=== PATIENT | male | born 1990 | race Caucasian/White ===

== ENCOUNTER 2018-01-29 15:32 | Emergency (ER) | payer OTHER, BC, SELFPAY ==
[2018-01-29 15:33] VITALS: BP 126/70; PULSE 76; RESP 16; TEMP 36.6; O2SAT 99; BMI 26.6
--- NOTE | 2018-01-29 15:38 | ED.RN ---
THIS RN TALKED TO RECORDINGS LIBRARIAN ORLIN WHITEHEAD. HE STATES NO DRUG TESTING IS REQUIRED.
--- NOTE | 2018-01-29 15:51 | ED.DCSUM_ITS ---
- ER Visit Summary Date of Service: 01/29/18 Chief Complaint: Right thumb laceration History of Present Illness: The patient is a 27 M presenting with right thumb laceration. This occurred at work just prior to arrival. He is left-handed and was using a hammer. He accidentally hit his right thumb and it got pinched. He has a laceration to the right thumb. Unknown last tetanus immunization. No other complaints. Physical Examination: Vitals are stable. Patient is afebrile. Alert no acute distress. HEENT exam is unremarkable. Lungs are clear and equal bilaterally. Heart is regular rate and rhythm. Extremities 1.5 cm laceration to the volar aspect of the right thumb, tendon function is intact, normal cap refill Skin is warm and dry. No focal neurologic deficit. Remainder of exam is unremarkable. Emergency Department Course and Treatment: Patient was given tetanus IM. X-ray of the right hand is obtained and shows no acute process, possible foreign body over the fifth metacarpal. There is no current injury to this area. Laceration was repaired under sterile conditions. Anesthetized with lidocaine. Irrigated with saline. 3, 5-0 simple sutures were placed. Patient tolerated this well. Advised follow-up with [facility], [facility]. Advised return to ED if worsening complaints. Disposition: Discharge home Impression: Right thumb laceration, laceration repair This note was generated with [employer] dictation software. It may contain incorrect words, spelling, and punctuation that were not noted in review of the chart prior to signing ED Disposition - Plan for ED Patient: Chief Complaint: Laceration Instructions: ED Laceration Hand Referrals: [facility] [GROUP OF PHYSICIANS] - Rui Ramos MD [Primary Care Provider] -
--- NOTE | 2018-01-29 16:05 | RAD_ITS ---
STUDY: X-RAY - RIGHT HAND REASON FOR EXAM: Male, 27 years old. Bleeding TECHNIQUE: 3 view(s) of the hand. COMPARISON: None. FINDINGS: Normal radiocarpal articulation. Normal distal radioulnar joint. Normal visualized carpal bones. Normal carpal articulations Normal carpometacarpal articulation of the thumb. Normal second through fifth carpometacarpal joints. Normal metacarpi. Normal metacarpophalangeal joint of the thumb. Normal interphalangeal joint of the thumb. Normal proximal and distal phalanges of the thumb. Normal metacarpophalangeal joints of the second through fifth fingers. Normal proximal and distal interphalangeal joints of the second through fifth fingers. Normal phalanges of the second through fifth fingers. There is a curved thin radio opacification projecting over the fifth metacarpal head suggesting possible foreign body RAD/Hand Min 3 Views IMPRESSION: Normal x-ray examination of the hand. Possible foreign body projecting over the fifth metacarpal head Electronically Signed: Radu Toro MD at 16:17 EDT , Service support ,
--- NOTE | 2018-01-29 17:16 | ED.DEP ---
ED Disposition - Plan for ED Patient: Chief Complaint: Laceration Instructions: ED Laceration Hand Referrals: Rui Ramos MD [Primary Care Provider] - [facility] [GROUP OF PHYSICIANS] -
[2018-01-29] MEDS: Diphth,Pertuss(Acell),Tet Vac 0.5 ML Vial IM (17:24)
== END 2018-01-29 17:47 | disposition home or self-care (01) ==
PROVIDERS: Emergency Provider Emergency Medicine; Family Provider Family Medicine; PCP Family Medicine
DX: S61.011A Laceration without foreign body of right thumb without damage to nail, initial encounter (principal); W22.8XXA Striking against or struck by other objects, initial encounter; Y93.9 Activity, unspecified; Y92.89 Other specified places as the place of occurrence of the external cause; Y99.0 Civilian activity done for income or pay; Z23 Encounter for immunization
CPT/HCPCS: 12001; 73130; 90715; 99284

== ENCOUNTER 2018-10-31 14:38 | Emergency (ER) | payer OTHER, BC, SELFPAY ==
[2018-10-31 14:39] VITALS: BP 136/81; PULSE 83; RESP 16; TEMP 36.8; O2SAT 97; BMI 29.0
--- NOTE | 2018-10-31 15:11 | ED.DCSUM_ITS ---
- ER Visit Summary Date of Service: 10/31/18 Chief Complaint: Finger laceration History of Present Illness: The patient is a 28 M who was at work when he got his left little finger pinched/cut. Last tetanus about 6 months ago. He is left-handed. Denies any other injuries. Bleeding controlled and sensation preserved. Physical Examination: Afebrile vital signs stable There is a 2 cm linear laceration over the volar aspect of the distal phalanx of the left little finger. It is gaping. There is no active bleeding. Tendon function normal. Neurovascular intact. Emergency Department Course and Treatment: Wound was locally anesthetized using 1% lidocaine. It was washed with Shur-Clens and explored. It was closed with a total of #3 simple interrupted 4-0 Ethilon sutures. Wound care discussed with patient. Stitches will need to be removed in 7 to 10 days. Impression: 1. Left little finger laceration-2 cm with repair This note was generated with [employer] dictation software. It may contain incorrect words, spelling, and punctuation that were not noted in review of the chart prior to signing ED Disposition - Plan for ED Patient: Disposition: Home or Assisted Living Instructions: ED Laceration Hand Referrals: [facility] [GROUP OF PHYSICIANS] - (in 7-10 days for suture removal)
[2018-10-31 15:29] VITALS: BP 124/77; PULSE 69; RESP 15; O2SAT 98
== END 2018-10-31 15:32 | disposition home or self-care (01) ==
LOC: ED 15:20
PROVIDERS: Emergency Provider Emergency Medicine; Family Provider Family Medicine; PCP Family Medicine
DX: S61.217A Laceration without foreign body of left little finger without damage to nail, initial encounter (principal); W23.0XXA Caught, crushed, jammed, or pinched between moving objects, initial encounter; Y93.9 Activity, unspecified; Y92.9 Unspecified place or not applicable; Y99.9 Unspecified external cause status; K21.9 Gastro-esophageal reflux disease without esophagitis; Z79.899 Other long term (current) drug therapy
CPT/HCPCS: 12001; 99284

== ENCOUNTER → 2019-07-23 07:01 | Outpatient (CLI) | payer BC, SELFPAY ==
[2018-11-08 17:12] VITALS: BMI 29.0
[2019-07-23 10:33] LABS: ALB/GLOB Ratio 1.3 RATIO (0.9-2.4); AST(SGOT) 18 U/L (15-37); Alanine Aminotransfer ALT/SGPT 30 U/L (16-61); Albumin, Serum 4.4 g/dL (3.2-5.0); Alkaline Phosphatase 57 U/L (45-117); Anion Gap 6 (5-15); BUN 16 mg/dL (7-18); BUN/Creat Ratio 15.4 RATIO (10-20); Calcium,Total 9.4 mg/dL (8.5-10.1); Chloride 105 mmol/L (98-107); Cholesterol 243 mg/dL (200); Creatinine, Serum 1.04 mg/dL (0.70-1.30); EST Glomerular Filtration Rate 89 mL/min (>60); Est Glom Filt Rate - Afr Amer 108 mL/min (>60); Globulin 3.5 g/dL (2.2-4.2); Glucose 95 mg/dL (74-106); High Density Lipoprotein 54 mg/dL; Protein, Total 7.9 g/dL (6.4-8.2); Sodium Level 137 mmol/L (136-145); Triglycerides 134 mg/dL; Very Low Density Lipoprotein 27 mg/dL (5-40)
== END ==
PROVIDERS: PCP Family Medicine; Referring Provider Nurse Practitioner Family; Visit Provider Nurse Practitioner Family
DX: E66.9 Obesity, unspecified (principal)
CPT/HCPCS: 36415; 80053; 80061

== ENCOUNTER → 2021-05-10 | Outpatient (CLI) | payer BC, SELFPAY | END | disposition home or self-care (01) | LOC: LABSPEC 05-13 09:25 | PROVIDERS: PCP Family Medicine; Visit Provider Family Medicine | DX: Z20.822 Contact with and (suspected) exposure to COVID-19 (principal) | CPT/HCPCS: 87635; U0005; U0003 ==

== ENCOUNTER → 2021-06-22 | Outpatient (CLI) | payer BC, SELFPAY | END | disposition home or self-care (01) | LOC: LABSPEC 15:20 | PROVIDERS: PCP Family Medicine; Referring Provider Family Medicine; Visit Provider Family Medicine | DX: Z20.822 Contact with and (suspected) exposure to COVID-19 (principal) | CPT/HCPCS: 87635; U0005; U0003 ==

== ENCOUNTER 2023-04-18 08:21 | Emergency (ER) | payer OTHER, SELFPAY ==
[2023-04-18 08:22] VITALS: BP 153/93; PULSE 90; RESP 16; TEMP 35.7; O2SAT 100; BMI 30.7
--- NOTE | 2023-04-18 08:48 | CT_ITS ---
INDICATION: Injury/Pain EXAMINATION: CT BRAIN - CT Head or Brain W/O Contrast Injection TECHNIQUE: Multiple axial images were obtained of the head without intravenous contrast. A radiation dose optimization technique was used for this scan. IV Contrast dosage and agent: None. RADIATION DOSAGE (If Supplied By Facility): CTDIvol = ( 44.99 ) mGy, DLP = ( 812.98 ) mGycm COMPARISON: No relevant prior comparison study available FINDINGS: BRAIN PARENCHYMA: No intra- or extra-axial hemorrhage. No evidence of acute infarct. No intracranial mass or mass effect. There is preservation of the euceda/white matter interface. Small right cerebellar calcification. CSF SPACES: Appropriate for age. No hydrocephalus. Basal cisterns are patent. CALVARIUM, SKULL BASE, PARANASAL SINUSES AND MASTOID AIR CELLS: Clear. No discrete lytic or blastic abnormalities. ORBITS: Both globes, extraocular muscles, optic nerves and retrobulbar fat appear unremarkable. CT/Brain/Head without Contrast IMPRESSION: No acute intracranial process. Electronically Signed: Zenon Bangura MD at 9:14 EDT ,
--- NOTE | 2023-04-18 08:48 | CT_ITS ---
INDICATION: Injury/Pain EXAMINATION: CT CERVICAL SPINE - CT Spine Cervical W/O Contrast Injection TECHNIQUE: Helically acquired images were obtained of the cervical spine. 2D reformatted images were reviewed. A radiation dose optimization technique was used for this scan. IV Contrast dosage and agent: None. RADIATION DOSAGE (If Supplied By Facility): CTDIvol = ( 25.57 ) mGy, DLP = ( 579.49 ) mGycm COMPARISON: No relevant prior comparison study available FINDINGS: VERTEBRAE: No fracture or traumatic subluxation. No discrete lytic or blastic abnormality. Normal alignment. Normal craniocervical junction and cervicothoracic junction. DISCS and SPINAL CANAL: Disc heights are preserved. No critical stenosis. NECK SOFT TISSUES: No prevertebral soft tissue swelling. There is no cervical adenopathy. LUNG APICES: Clear. CT/Spine Cervical without Contras IMPRESSION: No evidence of acute cervical spinal fracture or spondylolisthesis. Electronically Signed: Zenon Bangura MD at 9:18 EDT ,
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
== END 2023-04-18 09:50 | disposition home or self-care (01) ==
PROVIDERS: Emergency Provider Emergency Medicine; PCP Family Medicine; Visit Provider Emergency Medicine
DX: S06.0X0A Concussion without loss of consciousness, initial encounter (principal); V49.40XA Driver injured in collision with unspecified motor vehicles in traffic accident, initial encounter; S16.1XXA Strain of muscle, fascia and tendon at neck level, initial encounter; R07.89 Other chest pain; M25.512 Pain in left shoulder; Z79.899 Other long term (current) drug therapy; Z87.891 Personal history of nicotine dependence
CPT/HCPCS: 70450; 72125; 99282

== ENCOUNTER → 2023-12-15 | Outpatient (CLI) | payer OTHER, SELFPAY ==
[2023-12-16 01:39] LABS: Anion Gap 11 (5-15); BUN 13 mg/dL (7-18); BUN/Creat Ratio 14.2 RATIO (10-20); Calcium,Total 9.5 mg/dL (8.5-10.1); Chloride 104 mmol/L (98-107); Cholesterol 199 mg/dL (200); Creatinine, Serum 0.92 mg/dL (0.70-1.30); EST Glomerular Filtration Rate 100 mL/min (>60); Est Glom Filt Rate - Afr Amer 121 mL/min (>60); Glucose 87 mg/dL (74-106); High Density Lipoprotein 38 mg/dL; Potassium 4.3 mmol/L (3.5-5.1); Sodium Level 138 mmol/L (136-145); Triglycerides 159 mg/dL; Very Low Density Lipoprotein 32 mg/dL (5-40)
== END | disposition home or self-care (01) ==
LOC: MFPLAB 11:39
PROVIDERS: PCP Family Medicine; Visit Provider Family Medicine
DX: Z00.00 Encounter for general adult medical examination without abnormal findings (principal)
CPT/HCPCS: 36415; 80048; 80061

== ENCOUNTER → 2024-01-10 | Outpatient (CLI) | payer OTHER, SELFPAY ==
--- NOTE | 2024-01-10 15:08 | NEURO ---
NCS and/or EMG Patient Report Ordering Doctor: Jamil Gardner DATE OF SERVICE: 01/10/24 Yefri presents with numbness, tingling and pain in both hands, worse on the right side. Electrodiagnostic findings: Right median motor nerve demonstrates prolonged distal latency with normal amplitude and reduced conduction velocity. Left median motor nerve demonstrates prolonged distal latency with normal amplitude and conduction velocity. Ulnar motor response within normal limits bilaterally, including conduction across the elbow. Prolonged right median sensory latency at the wrist. Prolonged left median sensory latency at the wrist. Needle EMG testing was performed in the upper limbs. All muscles tested showed no evidence of denervation with normal motor unit action potentials Electrodiagnostic impression: This is an abnormal study in the upper limbs 1. Electrodiagnostic findings suggestive of bilateral median mononeuropathy. This is consistent with a moderate right carpal tunnel syndrome and a mild left carpal tunnel syndrome 2. No electrodiagnostic evidence is noted for cervical radiculopathy. Multi Select Codes Neurology Neurology Interp Codes: 57527-71 Musc test done w/n test comp (interp) (2) and 88605-28 Nrv cndj test 9-10 studies (interp)
== END | disposition home or self-care (01) ==
PROVIDERS: PCP Family Medicine; Referring Provider Family Medicine; Visit Provider Family Medicine
DX: R20.0 Anesthesia of skin (principal); R20.2 Paresthesia of skin
CPT/HCPCS: 95886; 95911

== ENCOUNTER → 2024-06-05 | Outpatient (CLI) | payer OTHER, SELFPAY ==
--- NOTE | 2024-06-05 16:28 | RAD_ITS ---
INDICATION: PHYSICIAN ORDER EXAMINATION/TECHNIQUE: X-RAY - XR Chest 2 Views COMPARISON: No relevant prior comparison study available FINDINGS: LINES/DEVICES: None. LUNGS: No consolidation, edema or effusion. No pneumothorax. MEDIASTINUM AND CARDIOVASCULAR STRUCTURES: Cardiac silhouette not enlarged. Central airways and mediastinal contour are unremarkable. BONES AND SOFT TISSUES: Unremarkable. RAD/Chest PA and Lateral IMPRESSION: No radiographic evidence of acute cardiopulmonary disease. Electronically Signed: Zenon Bangura MD at 17:59 EST ,
[2024-06-05 17:53] LABS: Absolute Neutrophil Count 3.8 X10^3/uL (2.0-7.7); Basophil# 0.06 X10^3/uL; Basophil% 0.7 % (0-1); Eosinophil# 0.59 X10^3/uL; Eosinophils% 6.5 % (0-5); Hematocrit 40.8 % (40-54); Lymphocyte % 39.4 % (19-41); Mean Corp Hgb Conc 34.3 g/dL (32-36); Mean Corpuscular Hgb 28.2 pg (27.0-32.0); Mean Corpuscular Volume 82.3 fL (80-94); Mean Platelet Vol. 8.3 fl (6.2-12.0); Monocyte# 1.04 X10^3/uL; Monocyte% 11.4 % (0-10); NRBC Flagged by Analyzer 0 % (0-5); Neutrophil # 3.81 X10^3/uL (2.7-7.7); Neutrophil % 41.7 % (47-70); Platelet Count 272 K/mm3 (150-450); RBC Distribution Width CV 12.3 % (11.6-14.6); RBC Distribution Width SD 37.1 fl (35.1-43.9); Red Blood Count 4.96 M/mm3 (4.6-6.2); White Blood Count 9.1 K/mm3 (4.4-11.0)
== END | disposition home or self-care (01) ==
PROVIDERS: PCP Family Medicine; Referring Provider Family Medicine; Visit Provider Family Medicine
DX: R06.02 Shortness of breath (principal)
CPT/HCPCS: 36415; 71046; 85025

== ENCOUNTER → 2025-01-16 | Outpatient (CLI) | payer OTHER, SELFPAY ==
--- OUTSIDE RECORDS SUMMARY | 2025-01-16 08:38 | XMS RPT_ITS | CCD ---
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 COMPLAINT: No chief complaint on file. HPI: This is a 34 year old male who presents with left hand with numbness and tingling. Attempted injections with temporary relief, but have become more ineffective. Dx with carpal tunnel. ACTIVE PROBLEM LIST Seasonal Allergies Gastroesophageal Reflux Disease Without Esophagitis PAST MEDICAL HISTORY Diagnosis Date Gastroesophageal reflux disease without esophagitis 12/04/2024 NEGATIVE MEDICAL HISTORY Seasonal allergies 12/04/2024 PAST SURGICAL HISTORY Procedure Laterality Date PAST SURGICAL HISTORY OF hernia repair, WRIST SURGERY HX FAMILY HISTORY Problem Relation Age of Onset Anesthesia Problems No Family History Social History Tobacco Use Smoking status: Never Smokeless tobacco: Never Vaping Use Vaping status: Never Used Substance Use Topics Alcohol use: Never Drug use: Never ALLERGIES Allergen Reactions Demerol [Meperidine] Hives MEDICATIONS: Current Outpatient Medications Medication Sig MULTIVITAMIN ORAL Take 1 tablet by mouth once daily. fexofenadine HCl (JASMYNE 60 MG CAP) Take 1 capsule by mouth once daily. No current facility-administered medications for this visit. REVIEW OF SYSTEMS: Pain Assessment: General: No weight loss, malaise or fevers. Neuro: No history of TIA's, stroke, AMMONIUM SULFATE OPERATOR tumor, impaired sensorium, hemiplegia, paraplegia or quadraplegia. No neurological symptoms or problems. Respiratory: No history of current cough or dyspnea, or pneumonia in the past 6 weeks. No history of respiratory/pulmonary symptoms or problems. Seasonal allergies. Cardiovascular: No history of HTN requiring medication, no history of angina, CHF, PA, cardiac surgery or stents. Denies rest pain, gangrene or revascularization/amputatio n for PVD. No history of cardiovascular symptoms or problems. GI: Positive for GERD : No history of dysuria, frequency or incontinence,, stones or chronic kidney disease Endocrine: No history of diabetes. Has not taken steroids within the past 30 days. No history of endocrinological symptoms or problems. Hematology: No history of bleeding or clotting disorder. Pt is not taking anti-coagulation or platelet medications. No history of hematological symptoms or problems. Oncology: No history of CA metastasis, chemo within 30 days, or radiotherapy within 90 days. Has not lost 10% of body wt in 6 months. No history of oncological symptoms or problems. Psych: No history of psychiatric symptoms or problems. Musculoskeletal: Negative for joint pain or swelling, back pain or muscle pain. Skin: Negative for lesions, rash and itching. Objective PHYSICAL EXAM: Ht 5' 4 (1.63m) Wt 165 lb (74.8kg) BMI 28.31 kg/(m2). VIDEO EXAM: (if completed, performed via video enabled technology) GENERAL: alert and appropriate, in no distress, well-hydrated, well nourished, and happy, smiling, interactive SKIN: no rash noted HEAD: normocephalic, no abnormality or lesion noted OROPHARYNX: moist mucus membranes NECK: no self-reported cervical adenopathy RESPIRATORY: breathing non-labored CHEST: equal chest rise with normal respiratory effort HEART: no JVD or c/o CP or heart palpitations. Diagnostic tests reviewed for today's visit: Lab Value Units Date High Low HB No results within date range. HCT No results within date range. WBC No results within date range. PLT No results within date range. NA No results within date range. K No results within date range. GLUC No results within date range. BUN No results within date range. CREAT No results within date range. PTSEC No results within date range. INR No results within date range. APTT No results within date range. ALT No results within date range. AST No results within date range. TBILI No results within date range. TSH No results within date range. Lab Value Units Date High Low HCGQT No results within date range. UHCG No results within date range. HCG, BODY* No results within date range. Lab Value Units Date High Low ABO (more content not included)... Normal [facility] [place] 11-18-2024 YASHN Telephone (SUSAN) YEFRI MEJIA ([id number]) 1990 M Date Time Provider Department 11/18/24 MADDIE HUANG During your visit today, we recorded the following information about you: Lara Garland, WOLF 11/18/2024 1:29 PM Signed Patient calling in regards to schedule CTR surgery Please call when able Trini Martinez 11/18/2024 2:50 PM Signed Spoke to the patient. Allergies As of Date: 11/18/2024 Noted Allergy Reaction DEMEROL (MEPERIDINE) 03/07/2024 4 - Hives Date Reviewed: 11/13/2024 Reviewed by: Emily Heath MA - Fully Assessed Reason for Visit: Schedule Surgery [1330] Prescriptions as of 11/18/2024 - MULTIVITAMIN ORAL Take 1 tablet by mouth once daily. - fexofenadine HCl (JASMYNE 60 MG CAP) Take 1 capsule by mouth once daily. Problem List As Of Date: 11/18/2024 (None) Encounter Status:Closed by ANA MARIA ALLENTRINI on 11/18/24 Normal [facility] Additional Injections: L car pal tunnelon 11-13-2024 Maddie Huang, DO 11/19/2024 7:41 AM Additional Injections: L carpal tunnel for carpal tunnel syndrome 11/13/2024 7:39 AM The procedure site was prepped in the usual sterile fashion. Medications: 10 mg triamcinolone acetonide 10 mg/mL Anesthetics: 1 mL BUPivacaine (PF) 0.5 % (5 mg/mL) Outcome: tolerated well, no immediate complications Post-injection instructions were reviewed with the patient and the patient voiced understanding of these instructions. Informed Consent Consent Obtained: Verbal Sterling Protocol A moment to CARE was completed. SIGN IN Personnel directly involved with the procedure wore the appropriate PPE. Special Equipment: N/A Patient/Surrogate Stated/Verified: Patient name, Date of , Relevant allergies and Intended procedure TIME OUT Relevant labs, photos, and/or imaging studies have been reviewed. Intended patient and procedure match source documents. Consent obtained and matches the intended procedure. Correct side/site marked and visible. Medications required for procedure verified. Fire risk assessed and interventions discussed. No implant(s) inserted. SIGN OUT All specimens correctly labeled and sent. All instruments, equipment, possible retained foreign bodies accounted for. The post-procedure POC has been communicated to the patient or surrogate. No post-procedure POC communication to the patient's multidisciplinary team (including the bedside nurse for hospitalized patients) applicable. [facility] CNOVon 11-13-2024 CNOV Office Visit (ORMDNA ) YEFRI MEJIA ([id number]) 1990 M Date Time Provider Department 11/13/24 3:45 PM MADDIE HUANG During your visit today, we recorded the following information about you: Maddie Huang DO 11/19/2024 7:41 AM Signed Follow Up Visit Chief Complaint Yefri is a 34-year-old male with a history of left carpal tunnel syndrome, presenting for a corticosteroid injection. Additional Injections: L carpal tunnel for carpal tunnel syndrome 11/13/2024 7:39 AM The procedure site was prepped in the usual sterile fashion. Medications: 10 mg triamcinolone acetonide 10 mg/mL Anesthetics: 1 mL BUPivacaine (PF) 0.5 % (5 mg/mL) Outcome: tolerated well, no immediate complications Post-injection instructions were reviewed with the patient and the patient voiced understanding of these instructions. Informed Consent Consent Obtained: Verbal Sterling Protocol A moment to CARE was completed. SIGN IN Personnel directly involved with the procedure wore the appropriate PPE. Special Equipment: N/A Patient/Surrogate Stated/Verified: Patient name, Date of , Relevant allergies and Intended procedure TIME OUT Relevant labs, photos, and/or imaging studies have been reviewed. Intended patient and procedure match source documents. Consent obtained and matches the intended procedure. Correct side/site marked and visible. Medications required for procedure verified. Fire risk assessed and interventions discussed. No implant(s) inserted. SIGN OUT All specimens correctly labeled and sent. All instruments, equipment, possible retained foreign bodies accounted for. The post-procedure POC has been communicated to the patient or surrogate. No post-procedure POC communication to the patient's multidisciplinary team (including the bedside nurse for hospitalized patients) applicable. Patient presents with: Left Hand - Established Patient, Follow Up, Injections History of Present Illness PAIN EVALUATION 11/13/2024 1948 Pain Level: 7 Pain Location: Hand-Left Description: Numbness;Tingling;Aching Duration Amount of Time: -- ongoing Frequency: Intermittent Intervention/Comfort measure: Medication CSI HPI: Yefri Mejia is a 34 year old male for a follow up visit for left hand for carpal tunnel injection. He states that the last injection helped and he would like to get a repeat injection would also like to discuss possible surgery as well. Pain history is noted as above. Is there any overall improvement in your condition? No Any new injury, since being seen last: No Left Carpal Tunnel Syndrome: - Received a corticosteroid injection today. - Previous injection in August provided relief, but not as effective as the first injection. - Considering carpal tunnel release surgery in March. 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 REVIEW OF SYMPTOMS: Patient did not have, and does not currently have, any weight loss, malaise, fever, chills, headache, chest pain, chest pressure, palpitations, cough, shortness of breath, orthopnea, paroxsymal nocturnal dyspnea, nausea, vomiting, diarrhea, constipation, melena, hematochezia, urinary difficulties, prolonged bleeding, easily bruising, heat or cold intolerance, new onset joint pain or swelling, new onset extremity weakness or numbness, new onset auditory or visual disturbances, lightheadedness, dizziness, partial loss of consciousness or full loss of consciousness. No current symptoms were explicitly reported in the transcript; therefore, no ROS findings are documented. Current Outpatient Medications Medication Sig MULTIVITAMIN ORAL Take 1 tablet by mouth once daily. fexofenadine HCl (JASMYNE 60 MG CAP) Take 1 capsule by mouth once daily. No current facility-administered medications for this visit. Physical Exam Vitals: There were no vitals taken for this visit. Psych: Pleasant, good affect and mood General Appearance: Well appearing, alert, in no acute distress, well-hydrated, well nourished.. Skin: Skin color, texture, turgor normal, no suspicious rashes or lesions. Peripheral Pulses: Normal. Neurologic: Gait normal. Reflexes normal and symmetric. Sensation grossly intact.. Lymph Nodes: No cervical lymphadenopathy, No supraclavicular lymphadenopathy, No axillary lymphadenopathy., and No inguinal lymphadenopathy.. Respiratory: No recent pulmonary infection, hemoptysis, chronic cough, or shortness of breath at rest Rheumatologic: Joint deformities: left hand pain Right Hand Exam Tenderness The patient is experiencing no tenderness. Range of Motion The patient has normal right wrist ROM. Wrist Extension: normal Flexion: normal Pronation: normal Supination: normal Muscle Strength The patient has normal right wrist strength. Tests Phalen?s Sign: (more content not included)... Normal [facility] Additional Injections: Romi ann tunnelon 08-07-2024 Maddie Huang, DO 08/11/2024 9:28 AM Additional Injections: L carpal tunnel for carpal tunnel syndrome 08/07/2024 9:25 AM Medications: 10 mg triamcinolone acetonide 10 mg/mL Anesthetics: 1 mL BUPivacaine (PF) 0.5 % (5 mg/mL) [facility] CNOVon 08-07-2024 CNOV Office Visit (ORMDNA ) RODOLFOYEFRI ALVARADO ([id number]) 1990 M Date Time Provider Department 08/07/24 10:30 AM MADDIE HUANG During your visit today, we recorded the following information about you: Maddie Huang DO 08/11/2024 9:28 AM Signed Follow Up Visit Additional Injections: L carpal tunnel for carpal tunnel syndrome 08/07/2024 9:25 AM Medications: 10 mg triamcinolone acetonide 10 mg/mL Anesthetics: 1 mL BUPivacaine (PF) 0.5 % (5 mg/mL) Chief Complaint Yefri Mejia is a 34 year old male who presents today for follow up office visit. Patient presents with: Left Hand - Follow Up, Pain, Injections History of Present Illness PAIN EVALUATION 08/01/2024 0709 08/06/2024 1822 Pain Level: 6 6 Description: Burning;Numbness Burning;Numbness Duration Units: Months Months Frequency: Continuous Continuous HPI: Yefri Mejia is a 34 year old male for a follow up visit left carpal tunnel injection. Patient got significant relief from last injection in March. He is interested in having carpal release but wants to wait a few months. Pain history is noted as above. Is there any overall improvement in your condition? Yes, with injection Any new injury, since being seen last: No REVIEW OF SYMPTOMS: Patient did not have, and does not currently have, any weight loss, malaise, fever, chills, headache, chest pain, chest pressure, palpitations, cough, shortness of breath, orthopnea, paroxsymal nocturnal dyspnea, nausea, vomiting, diarrhea, constipation, melena, hematochezia, urinary difficulties, prolonged bleeding, easily bruising, heat or cold intolerance, new onset joint pain or swelling, new onset extremity weakness or numbness, new onset auditory or visual disturbances, lightheadedness, dizziness, partial loss of consciousness or full loss of consciousness. Current Outpatient Medications Medication Sig MULTIVITAMIN ORAL Take 1 tablet by mouth once daily. fexofenadine HCl (JASMYNE 60 MG CAP) Take 1 capsule by mouth once daily. No current facility-administered medications for this visit. Physical Exam Vitals: There were no vitals taken for this visit. Psych: Pleasant, good affect and mood General Appearance: Well appearing, alert, in no acute distress, well-hydrated, well nourished.. Skin: Skin color, texture, turgor normal, no suspicious rashes or lesions. Peripheral Pulses: Normal. Neurologic: Gait normal. Reflexes normal and symmetric. Sensation grossly intact.. Lymph Nodes: No cervical lymphadenopathy, No supraclavicular lymphadenopathy, No axillary lymphadenopathy., and No inguinal lymphadenopathy.. Respiratory: No recent pulmonary infection, hemoptysis, chronic cough, or shortness of breath at rest Rheumatologic: Joint deformities: left carpal tunnel symptoms Ortho Exam Assessment and Plan Radiographs: No imaging to review. Impression: Encounter Diagnosis ICD-10-CM 1. Bilateral carpal tunnel syndrome G56.03 Today, in detail, through a thorough evaluation, we discussed possible etiologies of pain and our plans for further diagnostic and therapeutic interventions. We discussed strategies for decreasing pain and improving strength, stability and motion. Patient's questions were answered in detailed. Patient verbalizes understanding and agrees with the treatment plan as discussed. Discussed with patient possible options for treatment. Patient elected proceed with injection. Patient told not to submerge the injected area for 24 hours in a hot tub, or bath, injection may take 2 weeks for improvement to be noticed, follow-up in 2 -6 weeks if symptoms do not resolve. All questions answered patient agreement of plan. Apply ice Limit activities as discussed Rest Do not submerge limb in water for 24 hours Cont current meds Watch sugars/decrease carbs Call if warm/hot/red Discussed with patient that if the injection does not work after 2 to 4 weeks to come back for reevaluation. Discussed the next 3 days may feel worse before it feels better. Discussed if having continued pain to return. May get injection every 3 months Maddie Huang D.O. M.P.H. Referring Provider: MADDIE HUANG [[id number]] Allergies As of Date: 08/07/2024 Noted Allergy Reaction DEMEROL (MEPERIDINE) 03/07/2024 4 - Hives Date Reviewed: 08/07/2024 Reviewed by: Aarti Mello MA - Fully Assessed Reason for Visit: Follow Up [171] Pain [78] Injections [199] Primary Visit Diagnosis:Bilateral carpal tunnel syndrome [G56.03] Order(s):Additional Injections: L carpal tunnel [HWV917] Order #: [id number] [] BUPivacaine (PF) 0.5 % (5 mg/mL) 1 mL injectionDisp: Rfl: [] triamcinolone acetonide 10 mg injection (KeNALog 10)Disp: Rfl: Prescriptions as of 08/11/2024 - MULTIVITAMIN ORAL Take 1 tablet by mouth once daily. - fexofenad (more content not included)... Normal [facility] CBC W/Diff, Automatedon 12-0 Absolute Lymph 3.60 X10 3/uL Normal 0.83-4.51 [facility] Comment on above: Performed By: #### L 100.0100 #### [facility] [address] [place], [address] Absolute Neut 3.8 X10 3/uL Normal 2.0-7.7 [facility] Comment on above: Performed By: #### L 100.0100 #### [facility] [address] [place], [address] Basophils/100 WBC (Bld) 0.7 % Normal 0-1 [facility] Comment on above: Performed By: #### L 100.0100 #### [facility] [address] [place], [address] Eosinophils/100 WBC (Bld) 6.5 % High 0-5 [facility] Comment on above: Performed By: #### L 100.0100 #### [facility] [address] [place], [address] Erythrocyte distribution width (RBC) [Ratio] 12.3 % Normal 11.6-14.6 [facility] Comment on above: Performed By: #### L 100.0100 #### [facility] [address] [place], [address] Hematocrit (Bld) [Volume fraction] 40.8 % Normal 40-54 [facility] Comment on above: Performed By: #### L 100.0100 #### [facility] [address] [place], [address] Hemoglobin (Bld) [Mass/Vol] 14.0 g/dL Normal 13.0-16.5 [facility] Comment on above: Performed By: #### L 100.0100 #### [facility] [address] [place], [address] IG% 0.300 Normal 0.0-0.9 [facility] Comment on above: Result Comment: IG% - Immature Granulocytes (promyelocytes, myelocytes and metamyelocytes) > 1% indicates that a LEFT SHIFT is Present. Performed By: #### L 100.0100 #### [facility] [address] [place], [address] Lymphocytes/100 WBC (Bld) 39.4 % Normal 19-41 [facility] Comment on above: Performed By: #### L 100.0100 #### [facility] [address] [place], [address] MCH (RBC) [Entitic mass] 28.2 pg Normal 27.0-32.0 [facility] Comment on above: Performed By: #### L 100.0100 #### [facility] [address] [place], [address] MCHC (RBC) [Mass/Vol] 34.3 g/dL Normal 32-36 [facility] Comment on above: Performed By: #### L 100.0100 #### [facility] [address] [place], [address] MCV (RBC) [Entitic vol] 82.3 fL Normal 80-94 [facility] Comment on above: Performed By: #### L 100.0100 #### [facility] [address] [place], [address] Monocytes/100 WBC (Bld) 11.4 % High 0-10 [facility] Comment on above: Performed By: #### L 100.0100 #### [facility] [address] [place], [address] Neutrophils/100 WBC (Bld) 41.7 % Low 47-70 [facility] Comment on above: Performed By: #### L 100.0100 #### [facility] [address] [place], [address] Nucleated RBC (Bld) [#/Vol] 0 10*3/uL Normal 0-5 [facility] Comment on above: Performed By: #### L 100.0100 #### [facility] [address] [place], [address] Platelet mean volume (Bld) [Entitic vol] 8.3 fL Normal 6.2-12.0 [facility] Comment on above: Performed By: #### L 100.0100 #### [facility] [address] [place], [address] Platelets (Bld) [#/Vol] 272 10*3/uL Normal 150-450 [facility] Comment on above: Performed By: #### L 100.0100 #### [facility] [address] [place], [address] RBC (Bld) [#/Vol] 4.96 10*6/uL Normal 4.6-6.2 [facility] Comment on above: Performed By: #### L 100.0100 #### [facility] [address] [place], [address] RDW SD 37.1 fl Normal 35.1-43.9 [facility] Comment on above: Performed By: #### L 100.0100 #### [facility] [address] [place], [address] WBC (Bld) [#/Vol] 9.1 10*3/uL Normal 4.4-11.0 [facility] Comment on above: Performed By: #### L 100.0100 #### [facility] [address] [place], [address] Chest PA and Lateralon 06-05 Chest PA and Lateral [facility] Imaging Services [address] [place] [address] Chest PA and Lateral MR#: [id number] Acct: [id number] Name: YEFRI MEJIA Rep #: [id number] : 1990 M 34 From: Zenon Anaya PCP: Dr. Jamil Biswas MD Status: [facility] Study: Chest PA and Lateral Date of Exam: 06/05/24 Exam# [id number] Ordering Dr: Jamil Biswas MD [id number] INDICATION: PHYSICIAN ORDER EXAMINATION/TECHNIQUE: X-RAY - XR Chest 2 Views COMPARISON: No relevant prior comparison study available FINDINGS: LINES/DEVICES: None. LUNGS: No consolidation, edema or effusion. No pneumothorax. MEDIASTINUM AND CARDIOVASCULAR STRUCTURES: Cardiac silhouette not enlarged. Central airways and mediastinal contour are unremarkable. BONES AND SOFT TISSUES: Unremarkable. RAD/Chest PA and Lateral IMPRESSION: No radiographic evidence of acute cardiopulmonary disease. Electronically Signed: Zenon Bangura MD at 17:59 EST , CC: Dr. Jamil Biswas MD Under Presser: Signed [facility] CNOVon 05-16-2024 [facility] Office Visit (ORTHWS ) RODOLFOYEFRI ALVARADO ([id number]) 1990 M Date Time Provider Department 05/16/24 1:30 PM MADDIE HUANG During your visit today, we recorded the following information about you: Maddie Huang DO 05/22/2024 4:24 PM Signed Follow Up Visit Chief Complaint Yefri Mejia is a 34 year old male who presents today for follow up office visit. Patient presents with: Left Hand - Established Patient, Post Op Right Hand - Established Patient, Post Op History of Present Illness PAIN EVALUATION No data found in the last 1 encounters. HPI: Yefri Mejia is a 34 year old male for a follow up visit 8 weeks 2 days post op bilateral CTR. Pain history is noted as above. He reports the injection into the left hand has given him good relief. Is there any overall improvement in your condition? Yes Any new injury, since being seen last: No REVIEW OF SYMPTOMS: Patient did not have, and does not currently have, any weight loss, malaise, fever, chills, headache, chest pain, chest pressure, palpitations, cough, shortness of breath, orthopnea, paroxsymal nocturnal dyspnea, nausea, vomiting, diarrhea, constipation, melena, hematochezia, urinary difficulties, prolonged bleeding, easily bruising, heat or cold intolerance, new onset joint pain or swelling, new onset extremity weakness or numbness, new onset auditory or visual disturbances, lightheadedness, dizziness, partial loss of consciousness or full loss of consciousness. Current Outpatient Medications Medication Sig MULTIVITAMIN ORAL Take 1 tablet by mouth once daily. fexofenadine HCl (JASMYNE 60 MG CAP) Take 1 capsule by mouth once daily. No current facility-administered medications for this visit. Physical Exam Vitals: There were no vitals taken for this visit. Psych: Pleasant, good affect and mood General Appearance: Well appearing, alert, in no acute distress, well-hydrated, well nourished.. Skin: Skin color, texture, turgor normal, no suspicious rashes or lesions. Peripheral Pulses: Normal. Neurologic: Gait normal. Reflexes normal and symmetric. Sensation grossly intact.. Lymph Nodes: No cervical lymphadenopathy, No supraclavicular lymphadenopathy, No axillary lymphadenopathy., and No inguinal lymphadenopathy.. Respiratory: No recent pulmonary infection, hemoptysis, chronic cough, or shortness of breath at rest Rheumatologic: Joint deformities: wrist follow up Right Hand Exam Right hand exam is normal. Tenderness The patient is experiencing no tenderness. Range of Motion The patient has normal right wrist ROM. Wrist Extension: normal Flexion: normal Pronation: normal Supination: normal Muscle Strength The patient has normal right wrist strength. Tests Phalen?s Sign: negative Tinel's sign (median nerve): negative Amberly's test: negative Other Erythema: absent Sensation: normal Pulse: present Comments: B/l med/uln/rad/ax nerves intact Left Hand Exam Left hand exam is normal. Tenderness The patient is experiencing no tenderness. Range of Motion The patient has normal left wrist ROM. Wrist Extension: normal Flexion: normal Pronation: normal Supination: normal Muscle Strength The patient has normal left wrist strength. Tests Phalen?s Sign: negative Tinel's sign (median nerve): negative Amberly's test: negative Other Erythema: absent Sensation: normal Pulse: present Assessment and Plan Radiographs: No imaging to review. Impression: Encounter Diagnosis ICD-10-CM 1. Bilateral carpal tunnel syndrome G56.03 Today, in detail, through a thorough evaluation, we discussed possible etiologies of pain and our plans for further diagnostic and therapeutic interventions. We discussed strategies for decreasing pain and improving strength, stability and motion. Patient's questions were answered in detailed. Patient verbalizes understanding and agrees with the treatment plan as discussed. Doing well, no concerns Happy with postop and injection so will defer proceeding with surgical intervention for contralateral hand at this time Follow up in 6-8 weeks or sooner if concerns Patient aware and in agreement of plan. All questions answered. Maddie Huang D.O. M.P.H. Referring Provider: MADDIE HUANG [[id number]] Allergies As of Date: 05/16/2024 Noted Allergy Reaction DEMEROL (MEPERIDINE) 03/07/2024 4 - Hives Date Reviewed: 05/16/2024 Reviewed by: Bebe Melo MA - Fully Assessed Reason for Visit: Established Patient [175] Post Op [174] Established Patient [175] Post Op [174] Primary Visit Diagnosis:Bilateral carpal tunnel syndrome [G56.03] Prescriptions as of 05/22/2024 - MULTIVITAMIN ORAL Take 1 tablet by mouth once daily. - fexofenadine HCl (JASMYNE 60 MG CAP) Take 1 capsule by mouth once daily. (more content not included)... Normal [facility] CNOVon 04-04-2024 CNOV Office Visit (XU ) YEFRI MEJIA ([id number]) 1990 M Date Time Provider Department 04/04/24 1:30 PM MADDIE HUANG During your visit today, we recorded the following information about you: Maddie Huang DO 04/04/2024 1:43 PM Signed Follow Up Visit Chief Complaint Yefri Hernandezmarissa is a 34 year old male who presents today for follow up office visit. Patient presents with: Right Hand - Established Patient, Post Op History of Present Illness PAIN EVALUATION No data found in the last 1 encounters. HPI: Yefri Mejia is a 34 year old male for a follow up visit 2 weeks 2 days post op right CTR and left CT injection. Pain history is noted as above. Patient reports good relief from the surgery. He is already feeling improvement. He does have concerns that the right middle and ring fingers get stuck. Is there any overall improvement in your condition? Yes Any new injury, since being seen last: No REVIEW OF SYMPTOMS: Patient did not have, and does not currently have, any weight loss, malaise, fever, chills, headache, chest pain, chest pressure, palpitations, cough, shortness of breath, orthopnea, paroxsymal nocturnal dyspnea, nausea, vomiting, diarrhea, constipation, melena, hematochezia, urinary difficulties, prolonged bleeding, easily bruising, heat or cold intolerance, new onset joint pain or swelling, new onset extremity weakness or numbness, new onset auditory or visual disturbances, lightheadedness, dizziness, partial loss of consciousness or full loss of consciousness. Current Outpatient Medications Medication Sig MULTIVITAMIN ORAL Take 1 tablet by mouth once daily. fexofenadine HCl (JASMYNE 60 MG CAP) Take 1 capsule by mouth once daily. No current facility-administered medications for this visit. Physical Exam Vitals: There were no vitals taken for this visit. Psych: Pleasant, good affect and mood General Appearance: Well appearing, alert, in no acute distress, well-hydrated, well nourished.. Skin: Skin color, texture, turgor normal, no suspicious rashes or lesions. Peripheral Pulses: Normal. Neurologic: Gait normal. Reflexes normal and symmetric. Sensation grossly intact.. Lymph Nodes: No cervical lymphadenopathy, No supraclavicular lymphadenopathy, No axillary lymphadenopathy., and No inguinal lymphadenopathy.. Respiratory: No recent pulmonary infection, hemoptysis, chronic cough, or shortness of breath at rest Rheumatologic: Joint deformities: rigth wrist follow up Right Hand Exam Tenderness The patient is experiencing tenderness in the palmar area. Range of Motion The patient has normal right wrist ROM. Wrist Extension: normal Flexion: normal Pronation: normal Supination: normal Muscle Strength The patient has normal right wrist strength. Tests Phalen?s Sign: negative Tinel's sign (median nerve): negative Amberly's test: negative Other Erythema: absent Scars: present Pulse: present Comments: B/l uln/rad/ax nerves intact Med nerve symptoms improved bilaterally Left Hand Exam Left hand exam is normal. Tenderness The patient is experiencing no tenderness. Range of Motion The patient has normal left wrist ROM. Wrist Extension: normal Flexion: normal Pronation: normal Supination: normal Muscle Strength The patient has normal left wrist strength. Tests Phalen?s Sign: negative Tinel's sign (median nerve): negative Amberly's test: negative Other Erythema: absent Pulse: present Assessment and Plan Radiographs: No imaging to review. Impression: Encounter Diagnosis ICD-10-CM 1. Bilateral carpal tunnel syndrome G56.03 Today, in detail, through a thorough evaluation, we discussed possible etiologies of pain and our plans for further diagnostic and therapeutic interventions. We discussed strategies for decreasing pain and improving strength, stability and motion. Patient's questions were answered in detailed. Patient verbalizes understanding and agrees with the treatment plan as discussed. Doing well from postop standpoint Appears to have some locking of middle/ring Will follow Follow up in 6 weeks to assess left wrist/ Stitches removed today Patient aware and in agreement of plan. All questions answered. Merle Mota D.O., M.P.H., MA 04/04/2024 1:[address] Huang, patient presents for suture removal. The wound is well healed without signs of infection. The sutures are removed. Patient tolerated well. Allergies As of Date: 04/04/2024 Noted Allergy Reaction DEMEROL (MEPERIDINE) 03/07/2024 4 - Hives Date Reviewed: 04/04/2024 Reviewed by: Bebe Melo MA - Fully Assessed Reason for Visit: Established Patient [175] Post Op [174] Primary Visit Diagnosis:Bilateral carpal tunnel syndrome [G56.03] Prescriptions as of (more content not included)... Normal [facility] ANES POSTPROC EVALon 024 ANES POSTPROC EVAL HNO ID: [id number] Author: ROMEL GREENE MD Service: Anesthesiology Author Type: Anesthesiologist Type: Anesthesia Postprocedure Evaluation Filed: 03/19/2024 13:05 Note Text: POST ANESTHESIA EVALUATION NOTE : 1990 Procedure Summary Date: 03/19/24 Room / Location: [place] OR / [place] OR Anesthesia Start: 1150 Anesthesia Stop: 1258 Procedures: DECOMPRESSION NERVE MEDIAN CARPAL TUNNEL (Right: Wrist) INJECT WRIST (Left: Wrist) Diagnosis: Bilateral carpal tunnel syndrome (Bilateral carpal tunnel syndrome [G56.03]) Surgeons: Maddie Huang DO Responsible Provider: Romel Greene MD Anesthesia Type: MAC ASA Status: 2 Anesthesia Type: MAC Last Vitals Vitals Value Taken Time BP 92/51 03/19/24 1300 Temp 36 ?C (96.8 ?F) 03/19/24 1257 Pulse 54 03/19/24 1303 Resp 12 03/19/24 1303 SpO2 96 % 03/19/24 1303 Vitals shown include unfiled device data. Post Anesthesia Patient Status Patient Evaluation: bedside. Anticipated Disposition: phase 2 then home. Neurological Status: aware and responsive. Pulmonary Status: breathing comfortably on room air Airway Control: returned to baseline unsupported. Cardiovascular Status: stable. Pain Management: clinically adequate Postoperative Hydration: acceptable. Intraoperative Events: no significant anesthesia events Post Operative Nausea/Vomiting Status: no significant post operative nausea or vomiting Recommendation: continue current plan of care. Anesthesia Observations No Documentation SIGNATURE: Romel Greene MD PATIENT NAME: Yefri Mejia DATE: March 19, 2024 TIME: 1:05 PM CSN: [id number] [facility] ANES PRE-OPon 03-19-2024 ANES PRE-OP HNO ID: [id number] Author: HUA MELÉNDEZ DO Service: Anesthesiology Author Type: Anesthesiologist Type: Anesthesia Preprocedure Evaluation Filed: 03/19/2024 09:04 Note Text: ANESTHESIOLOGY DAY OF SURGERY NOTE : 1990 Procedure Information Date/Time: 03/19/24 0955 Procedures: DECOMPRESSION NERVE MEDIAN CARPAL TUNNEL (Right: Wrist) INJECT WRIST (Left: Wrist) Location: [place] OR02 / [place] OR Surgeons: Maddie Huang DO Estimated body mass index is 31.89 kg/m? as calculated from the following: Height as of this encounter: 160 cm (5' 3). Weight as of this encounter: 81.6 kg (180 lb). Most recent hematocrit and potassium results: No results found for this basename: HCT,HEMATOCRIT,K,POTASSIUM Relevant Problems No relevant active problems I - PHYSICAL EVALUATION AIRWAY Patient intubated: No. Tracheostomy tube not present Mallampati: II. TM distance: >3 FB. Neck ROM: full ROM without neurological symptoms. Mouth opening: adequate. Short neck: no. Thick neck: no DENTAL Dental findings: teeth intact. Additional exam findings: yes. CARDIOVASCULAR Rhythm: regular Rate: normal PULMONARY Breath sounds clear to auscultation. II - ANESTHESIA PLAN ASA Score: 2 Anesthetic Plan: MAC NPO Status: adequate Beta Anthony Monitoring Plan Monitoring plan: standard ASA. Post Procedure Analgesic Plan Postoperative analgesic plan: parenteral or oral opioids and per surgical service. Informed Consent Anesthetic risks, benefits, alternatives, personnel and consent discussed: yes. Patient / Responsible Republican agrees to proceed: yes Patient / Surrogate agrees to blood products: Yes DNR status not reviewed with patient and/or family prior to surgery. Significant changes in the patient condition since the History and Physical, not otherwise documented in primary service progress note: no. Potential Anesthesia issues that may suggest increased risk of complications or contraindication to planned procedure: none. Vitals Value Taken Time BP 130/78 03/19/24 0843 Pulse 73 03/19/24 0843 Resp 16 03/19/24 0843 Temp 36.3 ?C (97.3 ?F) 03/19/24 0843 SpO2 99 % 03/19/24 0843 Facility-Administered Medications as of 03/19/2024 Medication Dose Route Frequency lidocaine (PF) 10 mg/mL (1 %) 1-2 mg injection (XYLOCAINE) 0.1-0.2 mL INTRADERMAL PRN lactated ringers iv infusion 5-30 mL/hr INTRAVENOUS CONTINUOUS NaCl 0.9% iv flush bag 20 mL INTRAVENOUS PRN ceFAZolin iv piggyback 2 g in D5W (iso-osmotic) 100 mL (ANCEF) 2 g INTRAVENOUS Pre-Op Once [COMPLETED] acetaminophen 1,000 mg tab(s) (TYLENOL) 1,000 mg ORAL Pre-Op Once [COMPLETED] promethazine 12.5 mg tab(s) (PHENERGAN) 12.5 mg ORAL Pre-Op Once Outpatient Medications as of 03/19/2024 Medication Sig MULTIVITAMIN ORAL Take 1 tablet by mouth once daily. fexofenadine HCl (JASMYNE 60 MG CAP) Take 1 capsule by mouth once daily. I have interviewed and examined the patient. I have reviewed the medical record and/or the pre-anesthesia evaluation, pertinent labs, and test results. This contains updated information obtained within 48 hours of Surgery/Procedure. SIGNATURE: Hua Meléndez DO PATIENT NAME: Yefri Mejia DATE: March 19, 2024 TIME: 9:01 AM CSN: [id number] [facility] OPERATIVE NOon 03-19-2024 OPERATIVE NO HNO ID: [id number] Author: MADDEI HUANG DO Service: Orthopaedic Surgery Author Type: Physician Type: Operative Report Filed: 03/19/2024 12:54 Note Text: OPERATIVE/PROCEDURE REPORT LOG ID: [id number] SURGERY/PROCEDURE DATE: 03/19/2024 INCISION/PROCEDURE START TIME: 12:13 PM INCISION CLOSE/PROCEDURE END TIME: 12:46 PM SURGEON(S)/PROCEDURALIST(S) AND BROOD HATCHERY MANAGER(S): Surgeons and Role: * Maddie Huang DO - Primary Physician School Counsellor: Lindsey Pedraza PA-C SURGERY/PROCEDURE(S): Right carpal tunnel release, eft carpal tunnel injection ANESTHESIA: Monitored Anesthesia Care SURGERY/PROCEDURE DETAILS: OPERATIVE/PROCEDURE REPORT LOG ID: [id number] Surgery/Procedure Date: 03/19/2024 Incision/Procedure Start Time: 12:13 PM Incision Close/Procedure End Time: 12:46 PM Surgeon(s)/Proceduralist(s) and School Counsellor(s): Surgeons and Role: * Maddie Huang DO - Primary Physician School Counsellor: Lindsey Pedraza PA-C Procedure(s): OPERATION: Right carpal tunnel release, open. Left carpal tunnel injection ANESTHESIA: local. PREOPERATIVE DIAGNOSIS: Bilateral carpal tunnel syndrome. POSTOPERATIVE DIAGNOSIS: Bilateral carpal tunnel syndrome. OPERATIVE INDICATIONS: This is a pleasant 34 year old male who had worsening, numbness, and tingling. His electrodiagnostic showed carpal tunnel syndrome. He exhausted conservative management and in the office, we discussed the risks, benefits, alternatives, and potential complications involving carpal tunnel release and he wished to pursue surgical intervention. We discussed that the goal of carpal tunnel surgery is to prevent symptoms from worsening, and that surgery may not alleviate all of his/her symptoms. OPERATIVE FINDINGS: Consistent with postoperative diagnosis. OPERATIVE PROCEDURE: On March 19, 2024, the patient was clearly identified in the preoperative area and marked accordingly on the Right palm by myself. He was taken to the operative suite and placed in the supine position with an armboard on the Right. All other bony landmarks were appropriately padded in standard fashion. The arm was then sterilely prepped and draped in standard fashion after local block was achieved. An appropriate time-out was conducted and all in the room were in agreement, signed consent form was on the chart. A longitudinal incision was made with in line with the third web space from 1 cm distal of the wrist crease to Mcclure's cardinal line. I used Bronwyn Rakes to retract the soft tissues. Bipolar electrocautery was used for hemostasis. I bluntly dissected down with Littler scissors to distal edge of the transverse carpal ligament until a flash of fat was noted. I directly divided distal edgeof the transverse carpal ligament with a #15 blade. Attention was then focused on the proximal portion and I used Littler scissors to bluntly dissect off the volar surface of the transverse carpal ligament. Blunt mets were used to completely divided the transverse carpal ligament proximally under standard technique. Bronwyn rakes were used to view up the wound to visualize for complete release and a [place] elevator was used to palpate for complete release. Hemostasis was observed, all neurovascular structures were protected throughout the case. The wound was copiously irrigated with normal saline and I closed with 3-0 nylons in horizontal mattress fashion for a total of 3. Xeroform gauze, sterile 4 x 4 gauze, Webril padding, and a Bias roll was used for final bandage. There were no complications during the procedure. The patient was safely transferred to the Postanesthetic Care Unit in stable condition. I performed the entire procedure. SIGNATURE: Maddie Huang DO PATIENT NAME: Yefri Mejia DATE: March 19, 2024 TIME: 12:52 PM PAGER/CONTACT #: PRE-OP/PRE-PROCEDURE DIAGNOSIS: as aobve POST-OP/POST-PROCEDURE DIAGNOSIS: Same as Preop ESTIMATED BLOOD LOSS: 0 ml SPECIMENS: None IMPLANTABLE DEVICES: NONE DRAINS: None COMPLICATIONS: None CLOSURE TECHNIQUE: Primary PARTICIPATION IN SURGERY/PROCEDURE: I/primary surgeon/proceduralist performed the procedure with assistance. No qualified resident/fellow was available. SIGNATURE: Maddie Huang DO PATIENT NAME: Yefri Mejia DATE: March 19, 2024 TIME: 12:52 PM Normal [facility] HISTORY PHYSICALon 4 HISTORY PHYSICAL HNO ID: [id number] Author: PRETTY ELIZONDO APRN.SUPERVISOR ROUGH END Service: ? Author Type: Nurse Practitioner Type: H&P Filed: 03/13/2024 13:20 Note Text: This is a virtual visit using Virtual Visit (Audio/Visual)I have discussed the nature of this visit with the patient which will occur via Distance Health (Phone, Virtual Visit) and he agrees to proceed with this interaction. It required patient-provider interaction for the medical decision making as documented below. I have communicated my name and active licensure. The patient's identity and physical location were verified at the time of this visit. Either the patient or their legal sales representative livestock has been informed of the risks and benefits of and alternatives to treatment through a remote evaluation and consents to proceed with the evaluation remotely. PREANESTHESIA CONSULT CLINIC TELEHEALTH VISIT Patient has been identified by name and date of : Yes This is a virtual visit using [employer] Zoom Video Visit. It require patient-provider interaction for the medical decision making as documented below. Reason for contact: PACC visit Accompanied by: Self Scheduled Surgery: Right - DECOMPRESSION NERVE MEDIAN CARPAL TUNNEL Left - INJECT WRIST Subjective CHIEF COMPLAINT: Patient presents with: Anesthesia Consult HPI: This is a 34 year old male with diagnosis of Bilateral carpal tunnel syndrome scheduled for Right - DECOMPRESSION NERVE MEDIAN CARPAL TUNNEL Left - INJECT WRIST. There is no problem list on file for this patient. PAST MEDICAL HISTORY No date: NEGATIVE MEDICAL HISTORY PAST SURGICAL HISTORY No date: PAST SURGICAL HISTORY OF Comment: hernia repair, FAMILY HISTORY Problem Relation Age of Onset Anesthesia Problems No Family History Social History Tobacco Use Smoking status: Never Smokeless tobacco: Never Substance Use Topics Alcohol use: Never Drug use: Never ALLERGIES Allergen Reactions Demerol [Meperidine] Hives MEDICATIONS: Current Outpatient Medications Medication Sig MULTIVITAMIN ORAL Take 1 tablet by mouth once daily. fexofenadine HCl (JASMYNE 60 MG CAP) Take 1 capsule by mouth once daily. No current facility-administered medications for this visit. REVIEW OF SYSTEMS: Pain Assessment: General: No weight loss, malaise or fevers. Neuro: No history of TIA's, stroke, AMMONIUM SULFATE OPERATOR tumor, impaired sensorium, hemiplegia, paraplegia or quadraplegia. No neurological symptoms or problems. Respiratory: No history of current cough or dyspnea, or pneumonia in the past 6 weeks. No history of respiratory/pulmonary symptoms or problems. Cardiovascular: No history of HTN requiring medication, no history of angina, CHF, PA, cardiac surgery or stents. Denies rest pain, gangrene or revascularization/amputatio n for PVD. No history of cardiovascular symptoms or problems. GI: No history of GI symptoms or problems. No history of esophageal varices, recent ascites, or ETOH greater than 2 drinks per day. : No history of dysuria, frequency or incontinence,, stones or chronic kidney disease Endocrine: No history of diabetes. Has not taken steroids within the past 30 days. No history of endocrinological symptoms or problems. Hematology: No history of bleeding or clotting disorder. Pt is not taking anti-coagulation or platelet medications. No history of hematological symptoms or problems. Oncology: No history of CA metastasis, chemo within 30 days, or radiotherapy within 90 days. Has not lost 10% of body wt in 6 months. No history of oncological symptoms or problems. Psych: No history of psychiatric symptoms or problems. Musculoskeletal: See HPI Skin: Negative for lesions, rash and itching. Objective PHYSICAL EXAM: Ht 5' 3 (1.60m) Wt 180 lb (81.6kg) BMI 31.89 kg/(m2). VIDEO EXAM: (if completed, performed via video enabled technology) GENERAL: alert and appropriate, in no distress, well-hydrated, well nourished, and happy, smiling, interactive SKIN: no rash noted HEAD: normocephalic, no abnormality or lesion noted EYES: no injection and visual acuity is grossly normal EARS: hearing grossly normal NOSE: external nose normal without rhinorrhea OROPHARYNX: moist mucus membranes NECK: full ROM, no cervical LNs noted RESPIRATORY: breathing non-labored CHEST: equal chest rise with normal respiratory effort HEART: heart rate and rhythm regular by patient report with palpation of carotid artery and vocalizing by counting aloud with heart beat Diagnostic tests reviewed for today's visit: No new labs or tests Impression/Recommendations ASSESSMENT: Assessment: There is no known pertinent medical condition which may affect modesta-operative course METS: Run a short distance (8.00 METs) Patient denies any chest pain or undue shortness of breath with the above physical activity. ANESTHESIA FINDINGS: Intubation History: No history of difficult intubation Significant Anesthesia (more content not included)... Normal [facility] CNOVon 03-07-2024 CNOV Office Visit (ORTHSAVANNA ) YEFRI MEJIA ([id number]) 1990 M Date Time Provider Department 03/07/24 2:30 PM MADDIE HUANG During your visit today, we recorded the following information about you: Maddie Huang DO 03/07/2024 3:12 PM Signed Reason for Visit/Chief Complaint Yefri Mejia is a 34 year old male who presents today for a new evaluation of following complaint: Patient presents with: Left Hand - New Patient, Numbness Right Hand - New Patient, Numbness History of Present Illness: PAIN EVALUATION 03/04/2024 0644 Pain Level: 7 Description: Numbness;Tingling Duration Units: Months Frequency: Continuous Intervention/Comfort measure: Support surface;Other: See comment Comments: Wear carpel tunnel support wrist braces. HPI: Yefri Mejia is a 34 year old male presenting today with bilateral hand numbness, Right worse than Left. Pain history is noted as above. Ongoing for about 4 years and getting progressively worse. The numbness in the R hand keeps him up at night. Numbness occurs even at rest and sometimes thumb will get stuck - especially if he is holding his kids or riding his motorcycle. 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 Previous Treatments: Ice: Yes Heat: Yes Brace: Yes, OTC carpal tunnel brace NSAIDs: Yes, advil Injections: No Surgeries: No Physical Therapy: stretches at home, no formal PT Review of Systems: Patient did not have, and does not currently have, any weight loss, malaise, fever, chills, headache, chest pain, chest pressure, palpitations, cough, shortness of breath, orthopnea, paroxsymal nocturnal dyspnea, nausea, vomiting, diarrhea, constipation, melena, hematochezia, urinary difficulties, prolonged bleeding, easily bruising, heat or cold intolerance, new onset joint pain or swelling, new onset extremity weakness or numbness, new onset auditory or visual disturbances, lightheadedness, dizziness, partial loss of consciousness or full loss of consciousness. No current outpatient medications on file prior to visit. No current facility-administered medications on file prior to visit. ALLERGIES Allergen Reactions Demerol [Meperidine] Hives Physical Exam: Vitals: There were no vitals taken for this visit. Psych: Pleasant, good affect and mood General Appearance: Well appearing, alert, in no acute distress, well-hydrated, well nourished.. Skin: Skin color, texture, turgor normal, no suspicious rashes or lesions. Peripheral Pulses: Normal. Neurologic: Gait normal. Reflexes normal and symmetric. Sensation grossly intact.. Lymph Nodes: No cervical lymphadenopathy, No supraclavicular lymphadenopathy, No axillary lymphadenopathy., and No inguinal lymphadenopathy.. Respiratory: No recent pulmonary infection, hemoptysis, chronic cough, or shortness of breath at rest Rheumatologic: Joint deformities: b/l hand numbness Right Hand Exam Tenderness The patient is experiencing tenderness in the palmar area. Range of Motion The patient has normal right wrist ROM. Wrist Extension: normal Flexion: normal Pronation: normal Supination: normal Muscle Strength The patient has normal right wrist strength. Director Of Marketing Operations: 4/5 Tests Phalen?s sign: positive Tinel's sign (median nerve): positive Amberly's test: negative Other Erythema: absent Sensation: normal Pulse: present Comments: B/l med/uln/rad/ax nerves intact Left Hand Exam Left hand exam is normal. Tenderness The patient is experiencing no tenderness. Range of Motion The patient has normal left wrist ROM. Wrist Extension: normal Flexion: normal Pronation: normal Supination: normal Muscle Strength The patient has normal left wrist strength. Tests Phalen?s sign: positive Tinel's sign (median nerve): positive Amberly's test: negative Other Erythema: absent Sensation: normal Pulse: present Imaging: emg mod right, left mild Assessment and Plan: Impression: Encounter Diagnosis ICD-10-CM 1. Bilateral carpal tunnel syndrome G56.03 Plan: Risks and benefits vs alternatives to treatment were discussed with patient. Risks including but not limited to blood loss, blood clot, infection, neurovascular injury, failure of procedure, need for revision operation, loss of life and loss of limb. Patient aware of risks and benefits and agrees to proceed with written consent for surgical intervention. Right ctr, left ctinjection Today, in detail, through a thorough evaluation, we discussed possible etiologies of pain and our plans for further diagnostic and therapeutic interventions. We discussed strategies for decreasing pain and improving strength, stability and motion. Patient's questions were answered in detailed. Patient verbalizes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 you as soon as possible and regret any inconvenience. If you already have an Advance Directive, please fax a copy to [phone] or email to for it to be added to your chart. If you do not have an Advance Directive, you can find the appropriate form and more information at [email or web address]. We recommend that you complete the Advance Directive form found on the website and bring it with you the day of your surgery. It can be witnessed and scanned into your chart that day. Maria E Perea APRN.YASH documented in this encounter [facility] 12-04-2024 History and physical note PREANESTHESIA CONSULT CLINIC TELEHEALTH VISIT Patient has been identified by name and date of : Yes This is a virtual visit using L[employer] Zoom Video Visit. It require patient-provider interaction for the medical decision making as documented below. Reason for contact: PACC visit Accompanied by: Self I have communicated my name and active licensure. The patient's identity and physical location were verified at the time of this visit. Either the patient or their legal sales representative livestock has been informed of the risks and benefits of -- and alternatives to -- treatment through a remote evaluation and consents to proceed with the evaluation remotely. Scheduled Surgery: DECOMPRESSION NERVE MEDIAN CARPAL TUNNEL Subjective CHIEF COMPLAINT: No chief complaint on file. HPI: This is a 34 year old male who presents with left hand with numbness and tingling. Attempted injections with temporary relief, but have become more ineffective. Dx with carpal tunnel. ACTIVE PROBLEM LIST Seasonal Allergies Gastroesophageal Reflux Disease Without Esophagitis PAST MEDICAL HISTORY Diagnosis Date Gastroesophageal reflux disease without esophagitis 12/04/2024 NEGATIVE MEDICAL HISTORY Seasonal allergies 12/04/2024 PAST SURGICAL HISTORY Procedure Laterality Date PAST SURGICAL HISTORY OF hernia repair, WRIST SURGERY HX FAMILY HISTORY Problem Relation Age of Onset Anesthesia Problems No Family History Social History Tobacco Use Smoking status: Never Smokeless tobacco: Never Vaping Use Vaping status: Never Used Substance Use Topics Alcohol use: Never Drug use: Never ALLERGIES Allergen Reactions Demerol [Meperidine] Hives MEDICATIONS: Current Outpatient Medications Medication Sig MULTIVITAMIN ORAL Take 1 tablet by mouth once daily. fexofenadine HCl (JASMYNE 60 MG CAP) Take 1 capsule by mouth once daily. No current facility-administered medications for this visit. REVIEW OF SYSTEMS: Pain Assessment: General: No weight loss, malaise or fevers. Neuro: No history of TIA's, stroke, AMMONIUM SULFATE OPERATOR tumor, impaired sensorium, hemiplegia, paraplegia or quadraplegia. No neurological symptoms or problems. Respiratory: No history of current cough or dyspnea, or pneumonia in the past 6 weeks. No history of respiratory/pulmonary symptoms or problems. Seasonal allergies. Cardiovascular: No history of HTN requiring medication, no history of angina, CHF, PA, cardiac surgery or stents. Denies rest pain, gangrene or revascularization/amputation for PVD. No history of cardiovascular symptoms or problems. GI: Positive for GERD : No history of dysuria, frequency or incontinence,, stones or chronic kidney disease Endocrine: No history of diabetes. Has not taken steroids within the past 30 days. No history of endocrinological symptoms or problems. Hematology: No history of bleeding or clotting disorder. Pt is not taking anti-coagulation or platelet medications. No history of hematological symptoms or problems. Oncology: No history of CA metastasis, chemo within 30 days, or radiotherapy within 90 days. Has not lost 10% of body wt in 6 months. No history of oncological symptoms or problems. Psych: No history of psychiatric symptoms or problems. Musculoskeletal: Negative for joint pain or swelling, back pain or muscle pain. Skin: Negative for lesions, rash and itching. Objective PHYSICAL EXAM: Ht 5' 4 (1.63m) Wt 165 lb (74.8kg) BMI 28.31 kg/(m^2). VIDEO EXAM: (if completed, performed via video enabled technology) GENERAL: alert and appropriate, in no distress, well-hydrated, well nourished, and happy, smiling, interactive SKIN: no rash noted HEAD: normocephalic, no abnormality or lesion noted OROPHARYNX: moist mucus membranes NECK: no self-reported cervical adenopathy RESPIRATORY: breathing non-labored CHEST: equal chest rise with normal respiratory effort HEART: no JVD or c/o CP or heart palpitations. Diagnostic tests reviewed for today's visit: Lab Value Units Date High Low HB No results within date range. HCT No results within date range. WBC No results within date range. PLT No results within date range. NA No results within date range. K No results within date range. GLUC No results within date range. BUN No results within date range. CREAT No results within date range. PTSEC No results within date range. INR No results within date range. APTT No results within date range. ALT No results within date range. AST No results within date range. TBILI No results within date range. TSH No results within date range. Lab Value Units Date High Low HCGQT No results within date range. UHCG No results within date range. HCG, BODY* No results within date range. Lab Value Units Date High Low ABORHD No results within date range. ABSCREEN No results within date range. No results found for: HBA1C Impression/Recommendations ASSESSMENT: Seasonal allergies Assessment: jasmyne as needed. Gastroesophageal reflux disease without esophagitis Assessment: omeprazole METS: Run a short distance (8.00 METs) Patient denies any chest pain or undue shortness of breath with the above physical activity. ASA Class: 1 ANESTHESIA FINDINGS: Intubation History: No history of difficult intubation Significant Anesthesia Considerations: None Airway Exam: General: Normal appearance Mallampati Score is CLASS I ULBT: Class I - Lower incisors can bite the upper lip above the aretha line Neck: Normal appearance and function, Distance from hyoid to mentum during neck extension is at least 3 finger breaths Mouth: Normal tongue size Dentition: Intact Airway History: No abnormal airway history STOP BANG Score: Criteria: Male gender Score = 1 PLAN: This patient is optimally prepared for surgery pending DOS exam. CONSULTS: Patient does not require consults for optimization at this time. The Following Tests/Procedures Have Been Initiated: Labs not indicated per PACC protocol Planned Anesthetic: Per anesthesia choice Instructions Given to Patient: Patient given verbal instructions and voices comprehension and compliance. Copy sent electronically via My Chart, email, or mobile device. This is a virtual visit. It required patient-provider interaction for the medical decision making as documented above. SIGNATURE: Maria E Perea APRN.CNP PATIENT NAME: Yefri Mejia DATE: December 04, 2024 TIME: 7:33 AM PAGER/CONTACT #: [facility] 12-04-2024 History and physical note PREANESTHESIA CONSULT CLINIC TELEHEALTH VISIT Patient has been identified by name and date of : Yes This is a virtual visit using [employer] Video Visit. It require patient-provider interaction for the medical decision making as documented below. Reason for contact: PACC visit Accompanied by: Self I have communicated my name and active licensure. The patient's identity and physical location were verified at the time of this visit. Either the patient or their legal sales representative livestock has been informed of the risks and benefits of -- and alternatives to -- treatment through a remote evaluation and consents to proceed with the evaluation remotely. Scheduled Surgery: DECOMPRESSION NERVE MEDIAN CARPAL TUNNEL Subjective CHIEF COMPLAINT: No chief complaint on file. HPI: This is a 34 year old male who presents with left hand with numbness and tingling. Attempted injections with temporary relief, but have become more ineffective. Dx with carpal tunnel. ACTIVE PROBLEM LIST Seasonal Allergies Gastroesophageal Reflux Disease Without Esophagitis PAST MEDICAL HISTORY Diagnosis Date Gastroesophageal reflux disease without esophagitis 12/04/2024 NEGATIVE MEDICAL HISTORY Seasonal allergies 12/04/2024 PAST SURGICAL HISTORY Procedure Laterality Date PAST SURGICAL HISTORY OF hernia repair, WRIST SURGERY HX FAMILY HISTORY Problem Relation Age of Onset Anesthesia Problems No Family History Social History Tobacco Use Smoking status: Never Smokeless tobacco: Never Vaping Use Vaping status: Never Used Substance Use Topics Alcohol use: Never Drug use: Never ALLERGIES Allergen Reactions Demerol [Meperidine] Hives MEDICATIONS: Current Outpatient Medications Medication Sig MULTIVITAMIN ORAL Take 1 tablet by mouth once daily. fexofenadine HCl (JASMYNE 60 MG CAP) Take 1 capsule by mouth once daily. No current facility-administered medications for this visit. REVIEW OF SYSTEMS: Pain Assessment: General: No weight loss, malaise or fevers. Neuro: No history of TIA's, stroke, AMMONIUM SULFATE OPERATOR tumor, impaired sensorium, hemiplegia, paraplegia or quadraplegia. No neurological symptoms or problems. Respiratory: No history of current cough or dyspnea, or pneumonia in the past 6 weeks. No history of respiratory/pulmonary symptoms or problems. Seasonal allergies. Cardiovascular: No history of HTN requiring medication, no history of angina, CHF, PA, cardiac surgery or stents. Denies rest pain, gangrene or revascularization/amputation for PVD. No history of cardiovascular symptoms or problems. GI: Positive for GERD : No history of dysuria, frequency or incontinence,, stones or chronic kidney disease Endocrine: No history of diabetes. Has not taken steroids within the past 30 days. No history of endocrinological symptoms or problems. Hematology: No history of bleeding or clotting disorder. Pt is not taking anti-coagulation or platelet medications. No history of hematological symptoms or problems. Oncology: No history of CA metastasis, chemo within 30 days, or radiotherapy within 90 days. Has not lost 10% of body wt in 6 months. No history of oncological symptoms or problems. Psych: No history of psychiatric symptoms or problems. Musculoskeletal: Negative for joint pain or swelling, back pain or muscle pain. Skin: Negative for lesions, rash and itching. Objective PHYSICAL EXAM: Ht 5' 4 (1.63m) Wt 165 lb (74.8kg) BMI 28.31 kg/(m^2). VIDEO EXAM: (if completed, performed via video enabled technology) GENERAL: alert and appropriate, in no distress, well-hydrated, well nourished, and happy, smiling, interactive SKIN: no rash noted HEAD: normocephalic, no abnormality or lesion noted OROPHARYNX: moist mucus membranes NECK: no self-reported cervical adenopathy RESPIRATORY: breathing non-labored CHEST: equal chest rise with normal respiratory effort HEART: no JVD or c/o CP or heart palpitations. Diagnostic tests reviewed for today's visit: Lab Value Units Date High Low HB No results within date range. HCT No results within date range. WBC No results within date range. PLT No results within date range. NA No results within date range. K No results within date range. GLUC No results within date range. BUN No results within date range. CREAT No results within date range. PTSEC No results within date range. INR No results within date range. APTT No results within date range. ALT No results within date range. AST No results within date range. TBILI No results within date range. TSH No results within date range. Lab Value Units Date High Low HCGQT No results within date range. UHCG No results within date range. HCG, BODY* No results within date range. Lab Value Units Date High Low ABORHD No results within date range. ABSCREEN No results within date range. No results found for: HBA1C Impression/Recommendations ASSESSMENT: Seasonal allergies Assessment: jasmyne as needed. Gastroesophageal reflux disease without esophagitis Assessment: omeprazole METS: Run a short distance (8.00 METs) Patient denies any chest pain or undue shortness of breath with the above physical activity. ASA Class: 1 ANESTHESIA FINDINGS: Intubation History: No history of difficult intubation Significant Anesthesia Considerations: None Airway Exam: General: Normal appearance Mallampati Score is CLASS I ULBT: Class I - Lower incisors can bite the upper lip above the aretha line Neck: Normal appearance and function, Distance from hyoid to mentum during neck extension is at least 3 finger breaths Mouth: Normal tongue size Dentition: Intact Airway History: No abnormal airway history STOP BANG Score: Criteria: Male gender Score = 1 PLAN: This patient is optimally prepared for surgery pending DOS exam. CONSULTS: Patient does not require consults for optimization at this time. The Following Tests/Procedures Have Been Initiated: Labs not indicated per PACC protocol Planned Anesthetic: Per anesthesia choice Instructions Given to Patient: Patient given verbal instructions and voices comprehension and compliance. Copy sent electronically via My Chart, email, or mobile device. This is a virtual visit. It required patient-provider interaction for the medical decision making as documented above. SIGNATURE: Maria E Perea APRN.CNP PATIENT NAME: Yefri Mejia DATE: December 04, 2024 TIME: 7:33 AM PAGER/CONTACT #: documented in this encounter [facility] 11-18-2024 Telephone encounter Note Spoke to the patient. [facility] 11-18-2024 Miscellaneous Notes Spoke to the patient. Patient calling in regards to schedule CTR surgery Please call when able documented in this encounter [facility] 11-18-2024 Telephone encounter Note Patient calling in regards to schedule CTR surgery Please call when able [facility] 11-13-2024 Note HNO ID: [id number] Author: MADDIE HUANG, DO Service: ? Author Type: Physician Type: Progress Notes Filed: 11/19/2024 07:41 Note Text: Follow Up Visit Chief Complaint Yefri is a 34-year-old male with a history of left carpal tunnel syndrome, presenting for a corticosteroid injection. Additional Injections: L carpal tunnel for carpal tunnel syndrome 11/13/2024 7:39 AM The procedure site was prepped in the usual sterile fashion. Medications: 10 mg triamcinolone acetonide 10 mg/mL Anesthetics: 1 mL BUPivacaine (PF) 0.5 % (5 mg/mL) Outcome: tolerated well, no immediate complications Post-injection instructions were reviewed with the patient and the patient voiced understanding of these instructions. Informed Consent Consent Obtained: Verbal [place] Protocol A moment to CARE was completed. SIGN IN Personnel directly involved with the procedure wore the appropriate PPE. Special Equipment: N/A Patient/Surrogate Stated/Verified: Patient name, Date of , Relevant allergies and Intended procedure TIME OUT Relevant labs, photos, and/or imaging studies have been reviewed. Intended patient and procedure match source documents. Consent obtained and matches the intended procedure. Correct side/site marked and visible. Medications required for procedure verified. Fire risk assessed and interventions discussed. No implant(s) inserted. SIGN OUT All specimens correctly labeled and sent. All instruments, equipment, possible retained foreign bodies accounted for. The post-procedure POC has been communicated to the patient or surrogate. No post-procedure POC communication to the patient's multidisciplinary team (including the bedside nurse for hospitalized patients) applicable. Patient presents with: Left Hand - Established Patient, Follow Up, Injections History of Present Illness PAIN EVALUATION 11/13/2024 1558 Pain Level: 7 Pain Location: Hand-Left Description: Numbness;Tingling;Aching Duration Amount of Time: -- ongoing Frequency: Intermittent Intervention/Comfort measure: Medication CSI HPI: Yefri Mejia is a 34 year old male for a follow up visit for left hand for carpal tunnel injection. He states that the last injection helped and he would like to get a repeat injection would also like to discuss possible surgery as well. Pain history is noted as above. Is there any overall improvement in your condition? No Any new injury, since being seen last: No Left Carpal Tunnel Syndrome: - Received a corticosteroid injection today. - Previous injection in August provided relief, but not as effective as the first injection. - Considering carpal tunnel release surgery in March. 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 REVIEW OF SYMPTOMS: Patient did not have, and does not currently have, any weight loss, malaise, fever, chills, headache, chest pain, chest pressure, palpitations, cough, shortness of breath, orthopnea, paroxsymal nocturnal dyspnea, nausea, vomiting, diarrhea, constipation, melena, hematochezia, urinary difficulties, prolonged bleeding, easily bruising, heat or cold intolerance, new onset joint pain or swelling, new onset extremity weakness or numbness, new onset auditory or visual disturbances, lightheadedness, dizziness, partial loss of consciousness or full loss of consciousness. No current symptoms were explicitly reported in the transcript; therefore, no ROS findings are documented. Current Outpatient Medications Medication Sig MULTIVITAMIN ORAL Take 1 tablet by mouth once daily. fexofenadine HCl (JASMYNE 60 MG CAP) Take 1 capsule by mouth once daily. No current facility-administered medications for this visit. Physical Exam Vitals: There were no vitals taken for this visit. Psych: Pleasant, good affect and mood General Appearance: Well appearing, alert, in no acute distress, well-hydrated, well nourished.. Skin: Skin color, texture, turgor normal, no suspicious rashes or lesions. Peripheral Pulses: Normal. Neurologic: Gait normal. Reflexes normal and symmetric. Sensation grossly intact.. Lymph Nodes: No cervical lymphadenopathy, No supraclavicular lymphadenopathy, No axillary lymphadenopathy., and No inguinal lymphadenopathy.. Respiratory: No recent pulmonary infection, hemoptysis, chronic cough, or shortness of breath at rest Rheumatologic: Joint deformities: left hand pain Right Hand Exam Tenderness The patient is experiencing no tenderness. Range of Motion The patient has normal right wrist ROM. Wrist Extension: normal Flexion: normal Pronation: normal Supination: normal Muscle Strength The patient has normal right wrist strength. Tests Phalen?s Sign: negative Tinel's sign (median nerve): negative Amberly's test: negative Other Erythema: absent Sensation: normal Pulse: present Comments: Right med/uln/rad/ax nerves intact Left Hand Exam (more content not included)... [facility] 11-13-2024 History of Presen t illness Narrative Associated Order(s): Additional Injections: L carpal tunnel Post-Procedure Diagnose(s): Carpal tunnel syndrome, left upper limb Images from the original note were not included. Follow Up Visit Chief Complaint Yefri is a 34-year-old male with a history of left carpal tunnel syndrome, presenting for a corticosteroid injection. Additional Injections: L carpal tunnel for carpal tunnel syndrome 11/13/2024 7:39 AM The procedure site was prepped in the usual sterile fashion. Medications: 10 mg triamcinolone acetonide 10 mg/mL Anesthetics: 1 mL BUPivacaine (PF) 0.5 % (5 mg/mL) Outcome: tolerated well, no immediate complications Post-injection instructions were reviewed with the patient and the patient voiced understanding of these instructions. Informed Consent Consent Obtained: Verbal [place] Protocol A moment to CARE was completed. SIGN IN Personnel directly involved with the procedure wore the appropriate PPE. Special Equipment: N/A Patient/Surrogate Stated/Verified: Patient name, Date of , Relevant allergies and Intended procedure TIME OUT Relevant labs, photos, and/or imaging studies have been reviewed. Intended patient and procedure match source documents. Consent obtained and matches the intended procedure. Correct side/site marked and visible. Medications required for procedure verified. Fire risk assessed and interventions discussed. No implant(s) inserted. SIGN OUT All specimens correctly labeled and sent. All instruments, equipment, possible retained foreign bodies accounted for. The post-procedure POC has been communicated to the patient or surrogate. No post-procedure POC communication to the patient's multidisciplinary team (including the bedside nurse for hospitalized patients) applicable. Patient presents with: Left Hand - Established Patient, Follow Up, Injections History of Present Illness PAIN EVALUATION 11/13/2024 1558 Pain Level: 7 Pain Location: Hand-Left Description: Numbness;Tingling;Aching Duration Amount of Time: -- ongoing Frequency: Intermittent Intervention/Comfort measure: Medication CSI HPI: Yefri Mejia is a 34 year old male for a follow up visit for left hand for carpal tunnel injection. He states that the last injection helped and he would like to get a repeat injection would also like to discuss possible surgery as well. Pain history is noted as above. Is there any overall improvement in your condition? No Any new injury, since being seen last: No Left Carpal Tunnel Syndrome: - Received a corticosteroid injection today. - Previous injection in August provided relief, but not as effective as the first injection. - Considering carpal tunnel release surgery in March. 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 REVIEW OF SYMPTOMS: Patient did not have, and does not currently have, any weight loss, malaise, fever, chills, headache, chest pain, chest pressure, palpitations, cough, shortness of breath, orthopnea, paroxsymal nocturnal dyspnea, nausea, vomiting, diarrhea, constipation, melena, hematochezia, urinary difficulties, prolonged bleeding, easily bruising, heat or cold intolerance, new onset joint pain or swelling, new onset extremity weakness or numbness, new onset auditory or visual disturbances, lightheadedness, dizziness, partial loss of consciousness or full loss of consciousness. No current symptoms were explicitly reported in the transcript; therefore, no ROS findings are documented. Current Outpatient Medications Medication Sig MULTIVITAMIN ORAL Take 1 tablet by mouth once daily. fexofenadine HCl (JASMYNE 60 MG CAP) Take 1 capsule by mouth once daily. No current facility-administered medications for this visit. Physical Exam Vitals: There were no vitals taken for this visit. Psych: Pleasant, good affect and mood General Appearance: Well appearing, alert, in no acute distress, well-hydrated, well nourished.. Skin: Skin color, texture, turgor normal, no suspicious rashes or lesions. Peripheral Pulses: Normal. Neurologic: Gait normal. Reflexes normal and symmetric. Sensation grossly intact.. Lymph Nodes: No cervical lymphadenopathy, No supraclavicular lymphadenopathy, No axillary lymphadenopathy., and No inguinal lymphadenopathy.. Respiratory: No recent pulmonary infection, hemoptysis, chronic cough, or shortness of breath at rest Rheumatologic: Joint deformities: left hand pain Right Hand Exam Tenderness The patient is experiencing no tenderness. Range of Motion The patient has normal right wrist ROM. Wrist Extension: normal Flexion: normal Pronation: normal Supination: normal Muscle Strength The patient has normal right wrist strength. Tests Phalen s Sign: negative Tinel's sign (median nerve): negative Amberly's test: negative Other Erythema: absent Sensation: normal Pulse: present Comments: Right med/uln/rad/ax nerves intact Left Hand Exam Left hand exam is normal. Tenderness The patient is experiencing tenderness in the palmar area. Range of Motion The patient has normal left wrist ROM. Wrist Extension: normal Flexion: normal Pronation: normal Supination: normal Muscle Strength The patient has normal left wrist strength. Tests Phalen s sign: positive Tinel's sign (median nerve): positive Amberly's test: negative Other Erythema: absent Sensation: normal Pulse: present Comments: Left med nerve dec 2 pt Assessment and Plan Radiographs: No imaging to review. Impression: 1. Carpal tunnel syndrome, left upper limb (G56.02) - Symptoms have recurred since the last corticosteroid injection in August. - Administered corticosteroid injection to the left carpal tunnel region. - Discussed potential risks and benefits of carpal tunnel release surgery, including blood loss, infection, and nerve damage. - Patient considering surgical intervention in March; advised that scheduling can typically be accommodated within a two-week period. - Trini will contact the patient to arrange a convenient date for surgery. Today, in detail, through a thorough evaluation, we discussed possible etiologies of pain and our plans for further diagnostic and therapeutic interventions. We discussed strategies for decreasing pain and improving strength, stability and motion. Patient's questions were answered in detailed. Patient verbalizes understanding and agrees with the treatment plan as discussed. 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 M.P.H. documented in this encounter [facility] 08-07-2024 Note HNO ID: [id number] Author: MADDIE HUANG DO Service: ? Author Type: Physician Type: Progress Notes Filed: 08/11/2024 09:28 Note Text: Follow Up Visit Additional Injections: L carpal tunnel for carpal tunnel syndrome 08/07/2024 9:25 AM Medications: 10 mg triamcinolone acetonide 10 mg/mL Anesthetics: 1 mL BUPivacaine (PF) 0.5 % (5 mg/mL) Chief Complaint Yefri Mejia is a 34 year old male who presents today for follow up office visit. Patient presents with: Left Hand - Follow Up, Pain, Injections History of Present Illness PAIN EVALUATION 08/01/2024 0709 08/06/2024 1822 Pain Level: 6 6 Description: Burning;Numbness Burning;Numbness Duration Units: Months Months Frequency: Continuous Continuous HPI: Yefri Mejia is a 34 year old male for a follow up visit left carpal tunnel injection. Patient got significant relief from last injection in March. He is interested in having carpal release but wants to wait a few months. Pain history is noted as above. Is there any overall improvement in your condition? Yes, with injection Any new injury, since being seen last: No REVIEW OF SYMPTOMS: Patient did not have, and does not currently have, any weight loss, malaise, fever, chills, headache, chest pain, chest pressure, palpitations, cough, shortness of breath, orthopnea, paroxsymal nocturnal dyspnea, nausea, vomiting, diarrhea, constipation, melena, hematochezia, urinary difficulties, prolonged bleeding, easily bruising, heat or cold intolerance, new onset joint pain or swelling, new onset extremity weakness or numbness, new onset auditory or visual disturbances, lightheadedness, dizziness, partial loss of consciousness or full loss of consciousness. Current Outpatient Medications Medication Sig MULTIVITAMIN ORAL Take 1 tablet by mouth once daily. fexofenadine HCl (JASMYNE 60 MG CAP) Take 1 capsule by mouth once daily. No current facility-administered medications for this visit. Physical Exam Vitals: There were no vitals taken for this visit. Psych: Pleasant, good affect and mood General Appearance: Well appearing, alert, in no acute distress, well-hydrated, well nourished.. Skin: Skin color, texture, turgor normal, no suspicious rashes or lesions. Peripheral Pulses: Normal. Neurologic: Gait normal. Reflexes normal and symmetric. Sensation grossly intact.. Lymph Nodes: No cervical lymphadenopathy, No supraclavicular lymphadenopathy, No axillary lymphadenopathy., and No inguinal lymphadenopathy.. Respiratory: No recent pulmonary infection, hemoptysis, chronic cough, or shortness of breath at rest Rheumatologic: Joint deformities: left carpal tunnel symptoms Ortho Exam Assessment and Plan Radiographs: No imaging to review. Impression: Encounter Diagnosis ICD-10-CM 1. Bilateral carpal tunnel syndrome G56.03 Today, in detail, through a thorough evaluation, we discussed possible etiologies of pain and our plans for further diagnostic and therapeutic interventions. We discussed strategies for decreasing pain and improving strength, stability and motion. Patient's questions were answered in detailed. Patient verbalizes understanding and agrees with the treatment plan as discussed. Discussed with patient possible options for treatment. Patient elected proceed with injection. Patient told not to submerge the injected area for 24 hours in a hot tub, or bath, injection may take 2 weeks for improvement to be noticed, follow-up in 2 -6 weeks if symptoms do not resolve. All questions answered patient agreement of plan. Apply ice Limit activities as discussed Rest Do not submerge limb in water for 24 hours Cont current meds Watch sugars/decrease carbs Call if warm/hot/red Discussed with patient that if the injection does not work after 2 to 4 weeks to come back for reevaluation. Discussed the next 3 days may feel worse before it feels better. Discussed if having continued pain to return. May get injection every 3 months Maddie Huang D.O. M.P.H. [facility] 08-07-2024 History of Presen t illness Narrative Associated Order(s): Additional Injections: L carpal tunnel Post-Procedure Diagnose(s): Bilateral carpal tunnel syndrome Images from the original note were not included. Follow Up Visit Additional Injections: L carpal tunnel for carpal tunnel syndrome 08/07/2024 9:25 AM Medications: 10 mg triamcinolone acetonide 10 mg/mL Anesthetics: 1 mL BUPivacaine (PF) 0.5 % (5 mg/mL) Chief Complaint Yefri Mejia is a 34 year old male who presents today for follow up office visit. Patient presents with: Left Hand - Follow Up, Pain, Injections History of Present Illness PAIN EVALUATION 08/01/2024 0709 08/06/2024 1822 Pain Level: 6 6 Description: Burning;Numbness Burning;Numbness Duration Units: Months Months Frequency: Continuous Continuous HPI: Yefri Mejia is a 34 year old male for a follow up visit left carpal tunnel injection. Patient got significant relief from last injection in March. He is interested in having carpal release but wants to wait a few months. Pain history is noted as above. Is there any overall improvement in your condition? Yes, with injection Any new injury, since being seen last: No REVIEW OF SYMPTOMS: Patient did not have, and does not currently have, any weight loss, malaise, fever, chills, headache, chest pain, chest pressure, palpitations, cough, shortness of breath, orthopnea, paroxsymal nocturnal dyspnea, nausea, vomiting, diarrhea, constipation, melena, hematochezia, urinary difficulties, prolonged bleeding, easily bruising, heat or cold intolerance, new onset joint pain or swelling, new onset extremity weakness or numbness, new onset auditory or visual disturbances, lightheadedness, dizziness, partial loss of consciousness or full loss of consciousness. Current Outpatient Medications Medication Sig MULTIVITAMIN ORAL Take 1 tablet by mouth once daily. fexofenadine HCl (JASMYNE 60 MG CAP) Take 1 capsule by mouth once daily. No current facility-administered medications for this visit. Physical Exam Vitals: There were no vitals taken for this visit. Psych: Pleasant, good affect and mood General Appearance: Well appearing, alert, in no acute distress, well-hydrated, well nourished.. Skin: Skin color, texture, turgor normal, no suspicious rashes or lesions. Peripheral Pulses: Normal. Neurologic: Gait normal. Reflexes normal and symmetric. Sensation grossly intact.. Lymph Nodes: No cervical lymphadenopathy, No supraclavicular lymphadenopathy, No axillary lymphadenopathy., and No inguinal lymphadenopathy.. Respiratory: No recent pulmonary infection, hemoptysis, chronic cough, or shortness of breath at rest Rheumatologic: Joint deformities: left carpal tunnel symptoms Ortho Exam Assessment and Plan Radiographs: No imaging to review. Impression: Encounter Diagnosis ICD-10-CM 1. Bilateral carpal tunnel syndrome G56.03 Today, in detail, through a thorough evaluation, we discussed possible etiologies of pain and our plans for further diagnostic and therapeutic interventions. We discussed strategies for decreasing pain and improving strength, stability and motion. Patient's questions were answered in detailed. Patient verbalizes understanding and agrees with the treatment plan as discussed. Discussed with patient possible options for treatment. Patient elected proceed with injection. Patient told not to submerge the injected area for 24 hours in a hot tub, or bath, injection may take 2 weeks for improvement to be noticed, follow-up in 2 -6 weeks if symptoms do not resolve. All questions answered patient agreement of plan. Apply ice Limit activities as discussed Rest Do not submerge limb in water for 24 hours Cont current meds Watch sugars/decrease carbs Call if warm/hot/red Discussed with patient that if the injection does not work after 2 to 4 weeks to come back for reevaluation. Discussed the next 3 days may feel worse before it feels better. Discussed if having continued pain to return. May get injection every 3 months Maddie Huang D.O. M.P.H. documented in this encounter [facility] 05-16-2024 Note HNO ID: [id number] Author: MADDIE HUANG DO Service: ? Author Type: Physician Type: Progress Notes Filed: 05/22/2024 16:24 Note Text: Follow Up Visit Chief Complaint Yefri Mejia is a 34 year old male who presents today for follow up office visit. Patient presents with: Left Hand - Established Patient, Post Op Right Hand - Established Patient, Post Op History of Present Illness PAIN EVALUATION No data found in the last 1 encounters. HPI: Yefri Mejia is a 34 year old male for a follow up visit 8 weeks 2 days post op bilateral CTR. Pain history is noted as above. He reports the injection into the left hand has given him good relief. Is there any overall improvement in your condition? Yes Any new injury, since being seen last: No REVIEW OF SYMPTOMS: Patient did not have, and does not currently have, any weight loss, malaise, fever, chills, headache, chest pain, chest pressure, palpitations, cough, shortness of breath, orthopnea, paroxsymal nocturnal dyspnea, nausea, vomiting, diarrhea, constipation, melena, hematochezia, urinary difficulties, prolonged bleeding, easily bruising, heat or cold intolerance, new onset joint pain or swelling, new onset extremity weakness or numbness, new onset auditory or visual disturbances, lightheadedness, dizziness, partial loss of consciousness or full loss of consciousness. Current Outpatient Medications Medication Sig MULTIVITAMIN ORAL Take 1 tablet by mouth once daily. fexofenadine HCl (JASMYNE 60 MG CAP) Take 1 capsule by mouth once daily. No current facility-administered medications for this visit. Physical Exam Vitals: There were no vitals taken for this visit. Psych: Pleasant, good affect and mood General Appearance: Well appearing, alert, in no acute distress, well-hydrated, well nourished.. Skin: Skin color, texture, turgor normal, no suspicious rashes or lesions. Peripheral Pulses: Normal. Neurologic: Gait normal. Reflexes normal and symmetric. Sensation grossly intact.. Lymph Nodes: No cervical lymphadenopathy, No supraclavicular lymphadenopathy, No axillary lymphadenopathy., and No inguinal lymphadenopathy.. Respiratory: No recent pulmonary infection, hemoptysis, chronic cough, or shortness of breath at rest Rheumatologic: Joint deformities: wrist follow up Right Hand Exam Right hand exam is normal. Tenderness The patient is experiencing no tenderness. Range of Motion The patient has normal right wrist ROM. Wrist Extension: normal Flexion: normal Pronation: normal Supination: normal Muscle Strength The patient has normal right wrist strength. Tests Phalen?s Sign: negative Tinel's sign (median nerve): negative Amberly's test: negative Other Erythema: absent Sensation: normal Pulse: present Comments: B/l med/uln/rad/ax nerves intact Left Hand Exam Left hand exam is normal. Tenderness The patient is experiencing no tenderness. Range of Motion The patient has normal left wrist ROM. Wrist Extension: normal Flexion: normal Pronation: normal Supination: normal Muscle Strength The patient has normal left wrist strength. Tests Phalen?s Sign: negative Tinel's sign (median nerve): negative Amberly's test: negative Other Erythema: absent Sensation: normal Pulse: present Assessment and Plan Radiographs: No imaging to review. Impression: Encounter Diagnosis ICD-10-CM 1. Bilateral carpal tunnel syndrome G56.03 Today, in detail, through a thorough evaluation, we discussed possible etiologies of pain and our plans for further diagnostic and therapeutic interventions. We discussed strategies for decreasing pain and improving strength, stability and motion. Patient's questions were answered in detailed. Patient verbalizes understanding and agrees with the treatment plan as discussed. Doing well, no concerns Happy with postop and injection so will defer proceeding with surgical intervention for contralateral hand at this time Follow up in 6-8 weeks or sooner if concerns Patient aware and in agreement of plan. All questions answered. Maddie Huang D.O. M.P.H. [facility] 05-16-2024 History of Presen t illness Narrative Follow Up Visit Chief Complaint Yefri Mejia is a 34 year old male who presents today for follow up office visit. Patient presents with: Left Hand - Established Patient, Post Op Right Hand - Established Patient, Post Op History of Present Illness PAIN EVALUATION No data found in the last 1 encounters. HPI: Yefri Mejia is a 34 year old male for a follow up visit 8 weeks 2 days post op bilateral CTR. Pain history is noted as above. He reports the injection into the left hand has given him good relief. Is there any overall improvement in your condition? Yes Any new injury, since being seen last: No REVIEW OF SYMPTOMS: Patient did not have, and does not currently have, any weight loss, malaise, fever, chills, headache, chest pain, chest pressure, palpitations, cough, shortness of breath, orthopnea, paroxsymal nocturnal dyspnea, nausea, vomiting, diarrhea, constipation, melena, hematochezia, urinary difficulties, prolonged bleeding, easily bruising, heat or cold intolerance, new onset joint pain or swelling, new onset extremity weakness or numbness, new onset auditory or visual disturbances, lightheadedness, dizziness, partial loss of consciousness or full loss of consciousness. Current Outpatient Medications Medication Sig MULTIVITAMIN ORAL Take 1 tablet by mouth once daily. fexofenadine HCl (JASMYNE 60 MG CAP) Take 1 capsule by mouth once daily. No current facility-administered medications for this visit. Physical Exam Vitals: There were no vitals taken for this visit. Psych: Pleasant, good affect and mood General Appearance: Well appearing, alert, in no acute distress, well-hydrated, well nourished.. Skin: Skin color, texture, turgor normal, no suspicious rashes or lesions. Peripheral Pulses: Normal. Neurologic: Gait normal. Reflexes normal and symmetric. Sensation grossly intact.. Lymph Nodes: No cervical lymphadenopathy, No supraclavicular lymphadenopathy, No axillary lymphadenopathy., and No inguinal lymphadenopathy.. Respiratory: No recent pulmonary infection, hemoptysis, chronic cough, or shortness of breath at rest Rheumatologic: Joint deformities: wrist follow up Right Hand Exam Right hand exam is normal. Tenderness The patient is experiencing no tenderness. Range of Motion The patient has normal right wrist ROM. Wrist Extension: normal Flexion: normal Pronation: normal Supination: normal Muscle Strength The patient has normal right wrist strength. Tests Phalen s Sign: negative Tinel's sign (median nerve): negative Amberly's test: negative Other Erythema: absent Sensation: normal Pulse: present Comments: B/l med/uln/rad/ax nerves intact Left Hand Exam Left hand exam is normal. Tenderness The patient is experiencing no tenderness. Range of Motion The patient has normal left wrist ROM. Wrist Extension: normal Flexion: normal Pronation: normal Supination: normal Muscle Strength The patient has normal left wrist strength. Tests Phalen s Sign: negative Tinel's sign (median nerve): negative Amberly's test: negative Other Erythema: absent Sensation: normal Pulse: present Assessment and Plan Radiographs: No imaging to review. Impression: Encounter Diagnosis ICD-10-CM 1. Bilateral carpal tunnel syndrome G56.03 Today, in detail, through a thorough evaluation, we discussed possible etiologies of pain and our plans for further diagnostic and therapeutic interventions. We discussed strategies for decreasing pain and improving strength, stability and motion. Patient's questions were answered in detailed. Patient verbalizes understanding and agrees with the treatment plan as discussed. Doing well, no concerns Happy with postop and injection so will defer proceeding with surgical intervention for contralateral hand at this time Follow up in 6-8 weeks or sooner if concerns Patient aware and in agreement of plan. All questions answered. Maddie Huang D.O. M.P.H. documented in this encounter [facility] 04-04-2024 Note HNO ID: [id number] Author: MERLE VASQUES MA Service: ? Author Type: Advisory Services Associate Type: Progress Notes Filed: 04/04/2024 13:48 Note Text: Per Dr. Huang, patient presents for suture removal. The wound is well healed without signs of infection. The sutures are removed. Patient tolerated well. [facility] 04-04-2024 History of Presen t illness Narrative Per Dr. Huang, patient presents for suture removal. The wound is well healed without signs of infection. The sutures are removed. Patient tolerated well. Follow Up Visit Chief Complaint Yefri Sanderscarriemarva is a 34 year old male who presents today for follow up office visit. Patient presents with: Right Hand - Established Patient, Post Op History of Present Illness PAIN EVALUATION No data found in the last 1 encounters. HPI: Yefri Mejia is a 34 year old male for a follow up visit 2 weeks 2 days post op right CTR and left CT injection. Pain history is noted as above. Patient reports good relief from the surgery. He is already feeling improvement. He does have concerns that the right middle and ring fingers get stuck. Is there any overall improvement in your condition? Yes Any new injury, since being seen last: No REVIEW OF SYMPTOMS: Patient did not have, and does not currently have, any weight loss, malaise, fever, chills, headache, chest pain, chest pressure, palpitations, cough, shortness of breath, orthopnea, paroxsymal nocturnal dyspnea, nausea, vomiting, diarrhea, constipation, melena, hematochezia, urinary difficulties, prolonged bleeding, easily bruising, heat or cold intolerance, new onset joint pain or swelling, new onset extremity weakness or numbness, new onset auditory or visual disturbances, lightheadedness, dizziness, partial loss of consciousness or full loss of consciousness. Current Outpatient Medications Medication Sig MULTIVITAMIN ORAL Take 1 tablet by mouth once daily. fexofenadine HCl (JASMYNE 60 MG CAP) Take 1 capsule by mouth once daily. No current facility-administered medications for this visit. Physical Exam Vitals: There were no vitals taken for this visit. Psych: Pleasant, good affect and mood General Appearance: Well appearing, alert, in no acute distress, well-hydrated, well nourished.. Skin: Skin color, texture, turgor normal, no suspicious rashes or lesions. Peripheral Pulses: Normal. Neurologic: Gait normal. Reflexes normal and symmetric. Sensation grossly intact.. Lymph Nodes: No cervical lymphadenopathy, No supraclavicular lymphadenopathy, No axillary lymphadenopathy., and No inguinal lymphadenopathy.. Respiratory: No recent pulmonary infection, hemoptysis, chronic cough, or shortness of breath at rest Rheumatologic: Joint deformities: rigth wrist follow up Right Hand Exam Tenderness The patient is experiencing tenderness in the palmar area. Range of Motion The patient has normal right wrist ROM. Wrist Extension: normal Flexion: normal Pronation: normal Supination: normal Muscle Strength The patient has normal right wrist strength. Tests Phalen s Sign: negative Tinel's sign (median nerve): negative Amberly's test: negative Other Erythema: absent Scars: present Pulse: present Comments: B/l uln/rad/ax nerves intact Med nerve symptoms improved bilaterally Left Hand Exam Left hand exam is normal. Tenderness The patient is experiencing no tenderness. Range of Motion The patient has normal left wrist ROM. Wrist Extension: normal Flexion: normal Pronation: normal Supination: normal Muscle Strength The patient has normal left wrist strength. Tests Phalen s Sign: negative Tinel's sign (median nerve): negative Amberly's test: negative Other Erythema: absent Pulse: present Assessment and Plan Radiographs: No imaging to review. Impression: Encounter Diagnosis ICD-10-CM 1. Bilateral carpal tunnel syndrome G56.03 Today, in detail, through a thorough evaluation, we discussed possible etiologies of pain and our plans for further diagnostic and therapeutic interventions. We discussed strategies for decreasing pain and improving strength, stability and motion. Patient's questions were answered in detailed. Patient verbalizes understanding and agrees with the treatment plan as discussed. Doing well from postop standpoint Appears to have some locking of middle/ring Will follow Follow up in 6 weeks to assess left wrist/ Stitches removed today Patient aware and in agreement of plan. All questions answered. Maddie Huang D.O. M.P.H. documented in this encounter [facility] 04-04-2024 Note HNO ID: [id number] Author: MADDIE HUANG DO Service: ? Author Type: Physician Type: Progress Notes Filed: 04/04/2024 13:43 Note Text: Follow Up Visit Chief Complaint Yefri Mejia is a 34 year old male who presents today for follow up office visit. Patient presents with: Right Hand - Established Patient, Post Op History of Present Illness PAIN EVALUATION No data found in the last 1 encounters. HPI: Yefri Mejia is a 34 year old male for a follow up visit 2 weeks 2 days post op right CTR and left CT injection. Pain history is noted as above. Patient reports good relief from the surgery. He is already feeling improvement. He does have concerns that the right middle and ring fingers get stuck. Is there any overall improvement in your condition? Yes Any new injury, since being seen last: No REVIEW OF SYMPTOMS: Patient did not have, and does not currently have, any weight loss, malaise, fever, chills, headache, chest pain, chest pressure, palpitations, cough, shortness of breath, orthopnea, paroxsymal nocturnal dyspnea, nausea, vomiting, diarrhea, constipation, melena, hematochezia, urinary difficulties, prolonged bleeding, easily bruising, heat or cold intolerance, new onset joint pain or swelling, new onset extremity weakness or numbness, new onset auditory or visual disturbances, lightheadedness, dizziness, partial loss of consciousness or full loss of consciousness. Current Outpatient Medications Medication Sig MULTIVITAMIN ORAL Take 1 tablet by mouth once daily. fexofenadine HCl (JASMYNE 60 MG CAP) Take 1 capsule by mouth once daily. No current facility-administered medications for this visit. Physical Exam Vitals: There were no vitals taken for this visit. Psych: Pleasant, good affect and mood General Appearance: Well appearing, alert, in no acute distress, well-hydrated, well nourished.. Skin: Skin color, texture, turgor normal, no suspicious rashes or lesions. Peripheral Pulses: Normal. Neurologic: Gait normal. Reflexes normal and symmetric. Sensation grossly intact.. Lymph Nodes: No cervical lymphadenopathy, No supraclavicular lymphadenopathy, No axillary lymphadenopathy., and No inguinal lymphadenopathy.. Respiratory: No recent pulmonary infection, hemoptysis, chronic cough, or shortness of breath at rest Rheumatologic: Joint deformities: rigth wrist follow up Right Hand Exam Tenderness The patient is experiencing tenderness in the palmar area. Range of Motion The patient has normal right wrist ROM. Wrist Extension: normal Flexion: normal Pronation: normal Supination: normal Muscle Strength The patient has normal right wrist strength. Tests Phalen?s Sign: negative Tinel's sign (median nerve): negative Amberly's test: negative Other Erythema: absent Scars: present Pulse: present Comments: B/l uln/rad/ax nerves intact Med nerve symptoms improved bilaterally Left Hand Exam Left hand exam is normal. Tenderness The patient is experiencing no tenderness. Range of Motion The patient has normal left wrist ROM. Wrist Extension: normal Flexion: normal Pronation: normal Supination: normal Muscle Strength The patient has normal left wrist strength. Tests Phalen?s Sign: negative Tinel's sign (median nerve): negative Ambelry's test: negative Other Erythema: absent Pulse: present Assessment and Plan Radiographs: No imaging to review. Impression: Encounter Diagnosis ICD-10-CM 1. Bilateral carpal tunnel syndrome G56.03 Today, in detail, through a thorough evaluation, we discussed possible etiologies of pain and our plans for further diagnostic and therapeutic interventions. We discussed strategies for decreasing pain and improving strength, stability and motion. Patient's questions were answered in detailed. Patient verbalizes understanding and agrees with the treatment plan as discussed. Doing well from postop standpoint Appears to have some locking of middle/ring Will follow Follow up in 6 weeks to assess left wrist/ Stitches removed today Patient aware and in agreement of plan. All questions answered. Maddie PerezP.H. [facility] 03-13-2024 Instructions Pretty Elizondo APRN.[facility] 03/13/2024 1:13 PM EDT Images from the original note were not included. [facility]est[facility] PATIENT PREOPERATIVE INSTRUCTIONS Maddie Huang,* has scheduled you for your procedure at this surgery center: [facility]: [phone] -- [address] [address]. Please read below carefully for your personalized instructions. Dietary Restrictions: - No solid food after midnight. - You may have 12 ounces of clear liquids (water, clear juices such as apple juice or gatorade, carbonated beverages, clear tea, black coffee, jello) until 2 hours before scheduled arrival at facility. Medications: Unless instructed differently below, stay on all of your medications until your surgery. If you start any new medications after today's visit, please contact your surgeon. Pre-Surgery Med Instructions Medication Instructions MULTIVITAMIN ORAL Stop 7 days before surgery fexofenadine HCl (JASMYNE 60 MG CAP) Take the day of surgery with a small sip of water If you take any medications for erectile dysfunction-Cialis (Tadalafil), Levitra, Staxyn (Vardenafil) Viagra (Sildenenafil please do not take these for 48 hours before surgery. If you start any new medications after today's visit, please contact the surgeon's office. Blood Thinning Medications: - Stop NSAIDS (Ibuprofen, Advil, Aleve, Motrin, Celebrex, Mobic, etc.) 7 days before surgery, as directed by your surgeon. - Stop Aspirin 7 days before surgery, as directed by your surgeon. - Stop Vitamin E, ALL multi-vitamins, herbals and dietary supplements 7 days before surgery. - You may take Tylenol (Acetaminophen) or any of your pain medications that do not contain aspirin or NSAIDS as needed. Important Reminders: - If you use CPAP/BIPAP, bring the machine with you to the surgery center. - If you are prescribed inhalers for breathing, continue using them. - Candy, mints, and tobacco products are NOT permitted the morning of surgery. - Hearing aids, dentures and glasses may be worn the morning of surgery. - NO jewelry, body piercings, makeup, hairpins or contacts are to be worn the day of surgery. If you develop symptoms such as a fever, cold, or flu, or have other changes to your health within TWO DAYS of scheduled surgery or the morning of surgery, please contact the surgery center above. Personal Belongings: -Please have photo ID and insurance cards. -If you do not have a copy of advance directives on file with us, please bring a copy with you on the day of surgery. - Leave ALL valuables and money at home or with family members. For Outpatient Procedures: - YOU MUST HAVE A RESPONSIBLE GRITTING MACHINE OPERATOR TAKE YOU HOME. A MAGAZINE FEEDER OR OFFSET PLATEMAKER CANNOT BE MADE A RESPONSIBLE GRITTING MACHINE OPERATOR. - We recommend that a responsible person stays with you overnight to take care of you. - You cannot stay in a hotel alone after outpatient surgery. You will not be permitted to have your surgery, if you do not have someone to take care of you. Arrival Time for Surgery: - The Surgery Center or hospital where you are having surgery will call the afternoon before surgery (or Monday for Monday surgery) with a scheduled arrival time. - If you have not heard by 4 pm, please contact the surgery center above. Please be aware that emergency situations arise, which may delay or change your surgical time. If this happens, we will notify you as soon as possible and regret any inconvenience. If you already have an Advance Directive, please fax a copy to [phone] or email to for it to be added to your chart. If you do not have an Advance Directive, you can find the appropriate form and more information at [email or web address]. We recommend that you complete the Advance Directive form found on the website and bring it with you the day of your surgery. It can be witnessed and scanned into your chart that day. Pretty Elizondo APRN.YASH documented in this encounter [facility] 03-13-2024 History and physical note This is a virtual visit using Virtual Visit (Audio/Visual)I have discussed the nature of this visit with the patient which will occur via [facility] (Phone, Virtual Visit) and he agrees to proceed with this interaction. It required patient-provider interaction for the medical decision making as documented below. I have communicated my name and active licensure. The patient's identity and physical location were verified at the time of this visit. Either the patient or their legal sales representative livestock has been informed of the risks and benefits of and alternatives to treatment through a remote evaluation and consents to proceed with the evaluation remotely. PREANESTHESIA CONSULT CLINIC TELEHEALTH VISIT Patient has been identified by name and date of : Yes This is a virtual visit using [employer] Zoom Video Visit. It require patient-provider interaction for the medical decision making as documented below. Reason for contact: PACC visit Accompanied by: Self Scheduled Surgery: Right - DECOMPRESSION NERVE MEDIAN CARPAL TUNNEL Left - INJECT WRIST Subjective CHIEF COMPLAINT: Patient presents with: Anesthesia Consult HPI: This is a 34 year old male with diagnosis of Bilateral carpal tunnel syndrome scheduled for Right - DECOMPRESSION NERVE MEDIAN CARPAL TUNNEL Left - INJECT WRIST. There is no problem list on file for this patient. PAST MEDICAL HISTORY No date: NEGATIVE MEDICAL HISTORY PAST SURGICAL HISTORY No date: PAST SURGICAL HISTORY OF Comment: hernia repair, FAMILY HISTORY Problem Relation Age of Onset Anesthesia Problems No Family History Social History Tobacco Use Smoking status: Never Smokeless tobacco: Never Substance Use Topics Alcohol use: Never Drug use: Never ALLERGIES Allergen Reactions Demerol [Meperidine] Hives MEDICATIONS: Current Outpatient Medications Medication Sig MULTIVITAMIN ORAL Take 1 tablet by mouth once daily. fexofenadine HCl (JASMYNE 60 MG CAP) Take 1 capsule by mouth once daily. No current facility-administered medications for this visit. REVIEW OF SYSTEMS: Pain Assessment: General: No weight loss, malaise or fevers. Neuro: No history of TIA's, stroke, AMMONIUM SULFATE OPERATOR tumor, impaired sensorium, hemiplegia, paraplegia or quadraplegia. No neurological symptoms or problems. Respiratory: No history of current cough or dyspnea, or pneumonia in the past 6 weeks. No history of respiratory/pulmonary symptoms or problems. Cardiovascular: No history of HTN requiring medication, no history of angina, CHF, PA, cardiac surgery or stents. Denies rest pain, gangrene or revascularization/amputation for PVD. No history of cardiovascular symptoms or problems. GI: No history of GI symptoms or problems. No history of esophageal varices, recent ascites, or ETOH greater than 2 drinks per day. : No history of dysuria, frequency or incontinence,, stones or chronic kidney disease Endocrine: No history of diabetes. Has not taken steroids within the past 30 days. No history of endocrinological symptoms or problems. Hematology: No history of bleeding or clotting disorder. Pt is not taking anti-coagulation or platelet medications. No history of hematological symptoms or problems. Oncology: No history of CA metastasis, chemo within 30 days, or radiotherapy within 90 days. Has not lost 10% of body wt in 6 months. No history of oncological symptoms or problems. Psych: No history of psychiatric symptoms or problems. Musculoskeletal: See HPI Skin: Negative for lesions, rash and itching. Objective PHYSICAL EXAM: Ht 5' 3 (1.60m) Wt 180 lb (81.6kg) BMI 31.89 kg/(m^2). VIDEO EXAM: (if completed, performed via video enabled technology) GENERAL: alert and appropriate, in no distress, well-hydrated, well nourished, and happy, smiling, interactive SKIN: no rash noted HEAD: normocephalic, no abnormality or lesion noted EYES: no injection and visual acuity is grossly normal EARS: hearing grossly normal NOSE: external nose normal without rhinorrhea OROPHARYNX: moist mucus membranes NECK: full ROM, no cervical LNs noted RESPIRATORY: breathing non-labored CHEST: equal chest rise with normal respiratory effort HEART: heart rate and rhythm regular by patient report with palpation of carotid artery and vocalizing by counting aloud with heart beat Diagnostic tests reviewed for today's visit: No new labs or tests Impression/Recommendations ASSESSMENT: Assessment: There is no known pertinent medical condition which may affect [place]-operative course METS: Run a short distance (8.00 METs) Patient denies any chest pain or undue shortness of breath with the above physical activity. ANESTHESIA FINDINGS: Intubation History: No history of difficult intubation Significant Anesthesia Considerations: None Airway Exam: General: Normal appearance Mallampati Score is CLASS I ULBT: Class I - Lower incisors can bite the upper lip above the aretha line Neck: Normal appearance and function, Distance from hyoid to mentum during neck extension is at least 3 finger breaths Mouth: Normal tongue size and Mouth opening greater than 2 finger breaths Dentition: Intact Airway History: No abnormal airway history STOP BANG Score: Criteria: Male gender Score = 1 PLAN: This patient is optimally prepared for surgery. CONSULTS: Patient does not require consults for optimization at this time. The Following Tests/Procedures Have Been Initiated: Labs not indicated per PACC protocol, EKG not indicated per PACC protocol Planned Anesthetic: Per anesthesia choice Instructions Given to Patient: Patient given verbal instructions and voices comprehension and compliance. Copy sent electronically via My Chart, email, or mobile device. I spent a total of 16 minutes on the date of the service which included preparing to see the patient, [id number] patient care, completing clinical documentation, obtaining and/or reviewing separately obtained history, performing a medically appropriate examination, and counseling and educating the patient/family/caregiver This is a virtual visit. It required patient-provider interaction for the medical decision making as documented above. SIGNATURE: Pretty Elizondo APRN.CNP PATIENT NAME: Yefri Mejia DATE: March 13, 2024 TIME: 1:20 PM PAGER/CONTACT #: [facility] 03-13-2024 History and physical note This is a virtual visit using Virtual Visit (Audio/Visual)I have discussed the nature of this visit with the patient which will occur via [facility] (Phone, Virtual Visit) and he agrees to proceed with this interaction. It required patient-provider interaction for the medical decision making as documented below. I have communicated my name and active licensure. The patient's identity and physical location were verified at the time of this visit. Either the patient or their legal sales representative livestock has been informed of the risks and benefits of and alternatives to treatment through a remote evaluation and consents to proceed with the evaluation remotely. PREANESTHESIA CONSULT CLINIC TELEHEALTH VISIT Patient has been identified by name and date of : Yes This is a virtual visit using [employer] Zoom Video Visit. It require patient-provider interaction for the medical decision making as documented below. Reason for contact: PACC visit Accompanied by: Self Scheduled Surgery: Right - DECOMPRESSION NERVE MEDIAN CARPAL TUNNEL Left - INJECT WRIST Subjective CHIEF COMPLAINT: Patient presents with: Anesthesia Consult HPI: This is a 34 year old male with diagnosis of Bilateral carpal tunnel syndrome scheduled for Right - DECOMPRESSION NERVE MEDIAN CARPAL TUNNEL Left - INJECT WRIST. There is no problem list on file for this patient. PAST MEDICAL HISTORY No date: NEGATIVE MEDICAL HISTORY PAST SURGICAL HISTORY No date: PAST SURGICAL HISTORY OF Comment: hernia repair, 2004/2005 FAMILY HISTORY Problem Relation Age of Onset Anesthesia Problems No Family History Social History Tobacco Use Smoking status: Never Smokeless tobacco: Never Substance Use Topics Alcohol use: Never Drug use: Never ALLERGIES Allergen Reactions Demerol [Meperidine] Hives MEDICATIONS: Current Outpatient Medications Medication Sig MULTIVITAMIN ORAL Take 1 tablet by mouth once daily. fexofenadine HCl (JASMYNE 60 MG CAP) Take 1 capsule by mouth once daily. No current facility-administered medications for this visit. REVIEW OF SYSTEMS: Pain Assessment: General: No weight loss, malaise or fevers. Neuro: No history of TIA's, stroke, AMMONIUM SULFATE OPERATOR tumor, impaired sensorium, hemiplegia, paraplegia or quadraplegia. No neurological symptoms or problems. Respiratory: No history of current cough or dyspnea, or pneumonia in the past 6 weeks. No history of respiratory/pulmonary symptoms or problems. Cardiovascular: No history of HTN requiring medication, no history of angina, CHF, PA, cardiac surgery or stents. Denies rest pain, gangrene or revascularization/amputation for PVD. No history of cardiovascular symptoms or problems. GI: No history of GI symptoms or problems. No history of esophageal varices, recent ascites, or ETOH greater than 2 drinks per day. : No history of dysuria, frequency or incontinence,, stones or chronic kidney disease Endocrine: No history of diabetes. Has not taken steroids within the past 30 days. No history of endocrinological symptoms or problems. Hematology: No history of bleeding or clotting disorder. Pt is not taking anti-coagulation or platelet medications. No history of hematological symptoms or problems. Oncology: No history of CA metastasis, chemo within 30 days, or radiotherapy within 90 days. Has not lost 10% of body wt in 6 months. No history of oncological symptoms or problems. Psych: No history of psychiatric symptoms or problems. Musculoskeletal: See HPI Skin: Negative for lesions, rash and itching. Objective PHYSICAL EXAM: Ht 5' 3 (1.60m) Wt 180 lb (81.6kg) BMI 31.89 kg/(m^2). VIDEO EXAM: (if completed, performed via video enabled technology) GENERAL: alert and appropriate, in no distress, well-hydrated, well nourished, and happy, smiling, interactive SKIN: no rash noted HEAD: normocephalic, no abnormality or lesion noted EYES: no injection and visual acuity is grossly normal EARS: hearing grossly normal NOSE: external nose normal without rhinorrhea OROPHARYNX: moist mucus membranes NECK: full ROM, no cervical LNs noted RESPIRATORY: breathing non-labored CHEST: equal chest rise with normal respiratory effort HEART: heart rate and rhythm regular by patient report with palpation of carotid artery and vocalizing by counting aloud with heart beat Diagnostic tests reviewed for today's visit: No new labs or tests Impression/Recommendations ASSESSMENT: Assessment: There is no known pertinent medical condition which may affect [place]-operative course METS: Run a short distance (8.00 METs) Patient denies any chest pain or undue shortness of breath with the above physical activity. ANESTHESIA FINDINGS: Intubation History: No history of difficult intubation Significant Anesthesia Considerations: None Airway Exam: General: Normal appearance Mallampati Score is CLASS I ULBT: Class I - Lower incisors can bite the upper lip above the aretha line Neck: Normal appearance and function, Distance from hyoid to mentum during neck extension is at least 3 finger breaths Mouth: Normal tongue size and Mouth opening greater than 2 finger breaths Dentition: Intact Airway History: No abnormal airway history STOP BANG Score: Criteria: Male gender Score = 1 PLAN: This patient is optimally prepared for surgery. CONSULTS: Patient does not require consults for optimization at this time. The Following Tests/Procedures Have Been Initiated: Labs not indicated per PACC protocol, EKG not indicated per PACC protocol Planned Anesthetic: Per anesthesia choice Instructions Given to Patient: Patient given verbal instructions and voices comprehension and compliance. Copy sent electronically via My Chart, email, or mobile device. I spent a total of 16 minutes on the date of the service which included preparing to see the patient, [id number] patient care, completing clinical documentation, obtaining and/or reviewing separately obtained history, performing a medically appropriate examination, and counseling and educating the patient/family/caregiver This is a virtual visit. It required patient-provider interaction for the medical decision making as documented above. SIGNATURE: Pretty Elizondo APRN.CNP PATIENT NAME: Yefri Mejia DATE: March 13, 2024 TIME: 1:20 PM PAGER/CONTACT #: documented in this encounter [facility] 03-07-2024 Note HNO ID: [id number] Author: MADDIE HUANG, DO Service: ? Author Type: Physician Type: Progress Notes Filed: 03/07/2024 15:12 Note Text: Reason for Visit/Chief Complaint Yefri Mejia is a 34 year old male who presents today for a new evaluation of following complaint: Patient presents with: Left Hand - New Patient, Numbness Right Hand - New Patient, Numbness History of Present Illness: PAIN EVALUATION 03/04/2024 0644 Pain Level: 7 Description: Numbness;Tingling Duration Units: Months Frequency: Continuous Intervention/Comfort measure: Support surface;Other: See comment Comments: Wear carpel tunnel support wrist braces. HPI: Yefri Mejia is a 34 year old male presenting today with bilateral hand numbness, Right worse than Left. Pain history is noted as above. Ongoing for about 4 years and getting progressively worse. The numbness in the R hand keeps him up at night. Numbness occurs even at rest and sometimes thumb will get stuck - especially if he is holding his kids or riding his motorcycle. 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 Previous Treatments: Ice: Yes Heat: Yes Brace: Yes, OTC carpal tunnel brace NSAIDs: Yes, advil Injections: No Surgeries: No Physical Therapy: stretches at home, no formal PT Review of Systems: Patient did not have, and does not currently have, any weight loss, malaise, fever, chills, headache, chest pain, chest pressure, palpitations, cough, shortness of breath, orthopnea, paroxsymal nocturnal dyspnea, nausea, vomiting, diarrhea, constipation, melena, hematochezia, urinary difficulties, prolonged bleeding, easily bruising, heat or cold intolerance, new onset joint pain or swelling, new onset extremity weakness or numbness, new onset auditory or visual disturbances, lightheadedness, dizziness, partial loss of consciousness or full loss of consciousness. No current outpatient medications on file prior to visit. No current facility-administered medications on file prior to visit. ALLERGIES Allergen Reactions Demerol [Meperidine] Hives Physical Exam: Vitals: There were no vitals taken for this visit. Psych: Pleasant, good affect and mood General Appearance: Well appearing, alert, in no acute distress, well-hydrated, well nourished.. Skin: Skin color, texture, turgor normal, no suspicious rashes or lesions. Peripheral Pulses: Normal. Neurologic: Gait normal. Reflexes normal and symmetric. Sensation grossly intact.. Lymph Nodes: No cervical lymphadenopathy, No supraclavicular lymphadenopathy, No axillary lymphadenopathy., and No inguinal lymphadenopathy.. Respiratory: No recent pulmonary infection, hemoptysis, chronic cough, or shortness of breath at rest Rheumatologic: Joint deformities: b/l hand numbness Right Hand Exam Tenderness The patient is experiencing tenderness in the palmar area. Range of Motion The patient has normal right wrist ROM. Wrist Extension: normal Flexion: normal Pronation: normal Supination: normal Muscle Strength The patient has normal right wrist strength. Director Of Marketing Operations: 4/5 Tests Phalen?s sign: positive Tinel's sign (median nerve): positive Amberly's test: negative Other Erythema: absent Sensation: normal Pulse: present Comments: B/l med/uln/rad/ax nerves intact Left Hand Exam Left hand exam is normal. Tenderness The patient is experiencing no tenderness. Range of Motion The patient has normal left wrist ROM. Wrist Extension: normal Flexion: normal Pronation: normal Supination: normal Muscle Strength The patient has normal left wrist strength. Tests Phalen?s sign: positive Tinel's sign (median nerve): positive Amberly's test: negative Other Erythema: absent Sensation: normal Pulse: present Imaging: emg mod right, left mild Assessment and Plan: Impression: Encounter Diagnosis ICD-10-CM 1. Bilateral carpal tunnel syndrome G56.03 Plan: Risks and benefits vs alternatives to treatment were discussed with patient. Risks including but not limited to blood loss, blood clot, infection, neurovascular injury, failure of procedure, need for revision operation, loss of life and loss of limb. Patient aware of risks and benefits and agrees to proceed with written consent for surgical intervention. Right ctr, left ctinjection Today, in detail, through a thorough evaluation, we discussed possible etiologies of pain and our plans for further diagnostic and therapeutic interventions. We discussed strategies for decreasing pain and improving strength, stability and motion. Patient's questions were answered in detailed. Patient verbalizes understanding and agrees with the treatment plan as discussed. Maddie PerezP.H. [facility] 03-07-2024 History of Presen t illness Narrative Images from the original note were not included. Reason for Visit/Chief Complaint Yefri Mejia is a 34 year old male who presents today for a new evaluation of following complaint: Patient presents with: Left Hand - New Patient, Numbness Right Hand - New Patient, Numbness History of Present Illness: PAIN EVALUATION 03/04/2024 0644 Pain Level: 7 Description: Numbness;Tingling Duration Units: Months Frequency: Continuous Intervention/Comfort measure: Support surface;Other: See comment Comments: Wear carpel tunnel support wrist braces. HPI: Yefri Mejia is a 34 year old male presenting today with bilateral hand numbness, Right worse than Left. Pain history is noted as above. Ongoing for about 4 years and getting progressively worse. The numbness in the R hand keeps him up at night. Numbness occurs even at rest and sometimes thumb will get stuck - especially if he is holding his kids or riding his motorcycle. 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 Previous Treatments: Ice: Yes Heat: Yes Brace: Yes, OTC carpal tunnel brace NSAIDs: Yes, advil Injections: No Surgeries: No Physical Therapy: stretches at home, no formal PT Review of Systems: Patient did not have, and does not currently have, any weight loss, malaise, fever, chills, headache, chest pain, chest pressure, palpitations, cough, shortness of breath, orthopnea, paroxsymal nocturnal dyspnea, nausea, vomiting, diarrhea, constipation, melena, hematochezia, urinary difficulties, prolonged bleeding, easily bruising, heat or cold intolerance, new onset joint pain or swelling, new onset extremity weakness or numbness, new onset auditory or visual disturbances, lightheadedness, dizziness, partial loss of consciousness or full loss of consciousness. No current outpatient medications on file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
[2025-01-16 11:17] LABS: Anion Gap 13 (5-15); BUN 15 mg/dL (4-19); BUN/Creat Ratio 15.8 RATIO (10-20); Calcium,Total 9.8 mg/dL (7.6-11.0); Carbon Dioxide 23.1 mmol/L (21.0-32.0); Chloride 101 mmol/L (98-108); Cholesterol 262 mg/dL (<=200); Glucose 100 mg/dL (70-99); Low Density Lipoprotein Calc. 190 mg/dL; Potassium 4.3 mmol/L (3.3-5.1); Triglycerides 92 mg/dL; Very Low Density Lipoprotein 18 mg/dL (5-40); cholesterol:hdl ratio screen 4.90
== END | disposition home or self-care (01) ==
LOC: MTLAB 07:58
PROVIDERS: PCP Family Medicine; Referring Provider Family Medicine; Visit Provider Family Medicine
DX: Z00.00 Encounter for general adult medical examination without abnormal findings (principal)
CPT/HCPCS: 36415; 80048; 80061

== ENCOUNTER → 2025-04-15 | Outpatient (CLI) | payer OTHER, SELFPAY ==
[2025-04-15 11:34] LABS: AST(SGOT) 26 U/L (<=37); Albumin, Serum 4.8 g/dL (3.5-5.0); BUN 15 mg/dL (4-19); BUN/Creat Ratio 16.3 RATIO (10-20); Calcium,Total 9.9 mg/dL (7.6-11.0); Globulin 2.9 g/dL (2.2-4.2); Glucose 99 mg/dL (70-99)
[2025-04-15 11:35] LABS: Alanine Aminotransfer ALT/SGPT 23 U/L (<=46); Alkaline Phosphatase 56 U/L (40-129); Anion Gap 12 (5-15); Carbon Dioxide 24.2 mmol/L (21.0-32.0); Chloride 102 mmol/L (98-108); Cholesterol 174 mg/dL (<=200); Low Density Lipoprotein Calc. 93 mg/dL; Potassium 4.5 mmol/L (3.3-5.1); Triglycerides 179 mg/dL; Very Low Density Lipoprotein 36 mg/dL (5-40); cholesterol:hdl ratio screen 3.88
== END | disposition home or self-care (01) ==
LOC: MTLAB 07:28
PROVIDERS: PCP Family Medicine; Referring Provider Family Medicine; Visit Provider Family Medicine
DX: E78.00 Pure hypercholesterolemia, unspecified (principal)
CPT/HCPCS: 36415; 80053; 80061